=== PATIENT | male | born 1955 | race Caucasian/White ===

== ENCOUNTER 2017-11-15 10:34 | Day surgery (SDC) | payer BC ==
[2017-11-14 11:54] LABS: Absolute Lymphocytes (CBC) 2.6 K/uL (0.7-4.9); Absolute Monocytes 0.9 K/uL (0.1-1.3); Absolute Neutrophil 3.4 K/uL (1.8-8.0); Basophils % 1.5 % (0-1.3); Eosinophils % 5.9 % (0-4.4); Hematocrit 40.6 % (39.6-49.0); MCH 29.5 pg (27.0-35.0); MCV 85.5 fL (80-100); MPV 8.9 fL (7.6-11.3); RBC Red Blood Cell Count 4.75 M/uL (4.33-5.43)
[2017-11-14 11:56] LABS: Protime INR 1.06
[2017-11-15] MEDS ORDERED: NA CHLORIDE 0.9% 1,000 ML ONE (11:02)
[2017-11-15] MEDS ORDERED: BUPIVACAINE 0.5% PF 10 ML VIAL ONE (11:41)
[2017-11-15] MEDS ORDERED: MIDAZOLAM HCL 2 MG/2 ML INJ ONE (12:06)
[2017-11-15] MEDS ORDERED: FENTANYL CITR 100 MCG/2 ML ONE (12:10)
[2017-11-15] MEDS ORDERED: PROPOFOL 200 MG/20 ML VIAL IV ONE (12:10)
[2017-11-15] MEDS ORDERED: LIDOCAINE 2% MPF 5 ML VIAL ONE (12:10)
[2017-11-15] MEDS ORDERED: ONDANSETRON HCL 40 MG/20 ML VIAL ONE (12:11)
--- NOTE | 2017-11-15 12:53 | P.OP ---
Preoperative diagnosis: right hallux osteomyelitis Primary procedure: Right hallux amputation Anesthesia: general with 10cc 0.5% marcaine plain post op Estimated blood loss: <10cc Specimen: bone for pathology Findings: erythema and edema right hallux Operative Technique: Patient placed under general anesthesia and was prepped and draped in the proper manner. Right lower extremity was exsanquinated and PAT inflated to 250 mmHg. Attention directed to right hallux at which time two converging semieliptical incision were made. Incision carried straight to bone. utilizing sharp dissection the right hallux was disarticulated at the 1st mpj. The wound was irrigated with copious NSS. No purulence or abscess noted. The wound was reapproximated utilizing 3-0 Prolene for skin closure. A sterile dressing consisting of xeroform, 4X4s, kerlix and trista wrap were applied. PAT deflated with prompt hyperemic response. Complications: None Transferred to: Recovery Room Condition: Good
[2017-11-15] MEDS ORDERED: MORPHINE 4 MG/ML SYR ONE (12:58)
[2017-11-15 13:56] VITALS: BP 132/63; TEMP 97.3; O2SAT 92
== END 2017-11-15 13:58 | disposition home or self-care (01) ==
LOC: OR 10:34
PROVIDERS: ATTEND Podiatrist Foot & Ankle Surgery
PROC: 0Y6P0Z0 Detachment at Right 1st Toe, Complete, Open Approach (ICD-10-PCS; principal; 2017-11-15 12:00)
DX: E11.69 Type 2 diabetes mellitus with other specified complication (principal); M86.8X7 Other osteomyelitis, ankle and foot; G47.33 Obstructive sleep apnea (adult) (pediatric); I11.0 Hypertensive heart disease with heart failure; I50.9 Heart failure, unspecified; M19.90 Unspecified osteoarthritis, unspecified site; E66.01 Morbid (severe) obesity due to excess calories; Z68.42 Body mass index [BMI] 45.0-49.9, adult
CPT/HCPCS: 36415; 82962; 85025; 85610; 85730; 88305; 88311; J2250; J2405; J3010; J7030

== ENCOUNTER 2018-02-25 09:37 | Day surgery (SDC) | payer BC ==
[2018-02-22 12:05] LABS: Absolute Lymphocytes (CBC) 3.7 K/uL (0.7-4.9); Absolute Monocytes 1.1 K/uL (0.1-1.3); Absolute Neutrophil 7.7 K/uL (1.8-8.0); Basophils % 1.5 % (0-1.3); Eosinophils % 4.3 % (0-4.4); Hematocrit 44.6 % (39.6-49.0); Lymphocytes % 28.1 % (15.3-44.8); MPV 8.9 fL (7.6-11.3); Monocytes % 8.2 % (3.3-12.3); RBC Red Blood Cell Count 5.25 M/uL (4.33-5.43)
[2018-02-22 12:09] LABS: Urine Appearance CLEAR; Urine Bilirubin NEGATIVE (NEG); Urine Blood NEGATIVE (NEG); Urine Color YELLOW; Urine Glucose NEGATIVE (NEG); Urine Protein NEGATIVE (NEG); Urine Urobilinogen 0.2 mg/dL (0.2-1.0)
[2018-02-22 12:15] LABS: Urine Microscopic Reflex NO UMIC
[2018-02-22 12:22] LABS: Protime INR 1.21
[2018-02-25] MEDS ORDERED: NA CHLORIDE 0.9% 1,000 ML ONE (10:06)
[2018-02-25] MEDS ORDERED: LIDOCAINE 1% MPF 5 ML VIAL ONE ×3 (10:08→10:56)
[2018-02-25] MEDS ORDERED: PROPOFOL 200 MG/20 ML VIAL IV ONE (10:55)
[2018-02-25] MEDS ORDERED: FENTANYL CITR 100 MCG/2 ML ONE (10:56)
[2018-02-25] MEDS ORDERED: ONDANSETRON 4 MG/2 ML VIAL ONE (10:56)
[2018-02-25] MEDS ORDERED: MIDAZOLAM HCL 2 MG/2 ML INJ ONE (10:56)
[2018-02-25] MEDS ORDERED: LIDOCAINE 1% MPF 2 ML AMPULE ONE (10:58)
[2018-02-25] MEDS ORDERED: CEFAZOLIN 1GM (PREMIX IV) 1 GM/50 ML BAG ONE (11:23)
--- NOTE | 2018-02-25 11:37 | P.OP ---
Preoperative diagnosis: right third digit osteomyelitis Postoperative diagnosis: same Primary procedure: right third digit amputation Secondary procedure: none Anesthesia: mac with 8cc 1:1 0.5% marcaine 1% lidocaine plain Estimated blood loss: <10cc Specimen: toe for gross and micro Findings: as above Operative Technique: Patient placed under sedation in the supine position. 8cc1:1 0.5% marcaine 1% lidocaine plain injected locally right foot. Right pat inflated to 250mmHg before which area was prepped and draped in usual aseptic fashion. a racquet type incision placed at the base of the right third digit with incision being carried straight to bone. The toe was disarticulated at the mpj with utilizing sharp dissection. the wound was irrigated with copious amounts of normal sterile saline and closure was obtained with 3-0 prolene. A sterile dressing was applied to the right LE utilizing xeroform, 4X4s, kerlix and trista wrap Complications: None Transferred to: Recovery Room Condition: Good
[2018-02-25 13:13] VITALS: BP 121/44; TEMP 97.8; O2SAT 98
== END 2018-02-25 13:10 | disposition home or self-care (01) ==
LOC: OR 09:37
PROVIDERS: ATTEND Podiatrist Foot & Ankle Surgery
PROC: 0Y6T0Z0 Detachment at Right 3rd Toe, Complete, Open Approach (ICD-10-PCS; principal; 2018-02-25 11:00)
DX: E11.69 Type 2 diabetes mellitus with other specified complication (principal); M86.8X7 Other osteomyelitis, ankle and foot; I10 Essential (primary) hypertension; E66.01 Morbid (severe) obesity due to excess calories; Z68.42 Body mass index [BMI] 45.0-49.9, adult
CPT/HCPCS: 36415; 81003; 82962; 85025; 85610; 85730; 88304; 88305; 88311; J0690; J2001; J2250; J2405; J2704; J3010; J7030

== ENCOUNTER 2021-05-22 04:53 | Emergency (ER) | payer OTHER ==
[2021-05-22] MEDS ORDERED: HYDROCODONE/APAP 7.5/325 MG TAB ONE (05:49)
[2021-05-22] MEDS ORDERED: HYDROCODONE/APAP 5/325 MG TAB ONE (05:53)
--- NOTE | 2021-05-22 07:47 | RAD REPORT ---
EXAM DESCRIPTION: CT - Spine Lumbar Wo Con - 05/22/2021 6:25 am CLINICAL HISTORY: Radiculopathy. LOWER BACK PAIN COMPARISON: No comparisons TECHNIQUE: Axial noncontrast CT imaging of the lumbar spine was performed with coronal and sagittal re-formatted images. All CT scans are performed using dose optimization technique as appropriate and may include automated exposure control or mA/KV adjustment according to patient size. FINDINGS: No acute lumbar spine fracture seen. No aggressive marrow pattern or malalignment. Paraspinal tissues are normal in thickness. No paraspinal abscess or hematoma seen. Moderate posterior disc bulges are present lower lumbar levels, most significant at L4-5 and L5-S1. M ild moderate canal stenosis likely present at these levels. IMPRESSION: No acute lumbar spine abnormality. Moderate lower lumbar degenerative spondylosis. Followup nonemergent MRI lumbar spine would be sugges kecia.
[2021-05-22 08:06] LABS: Urine Blood Negative (Negative); Urine Glucose Negative (Negative); Urine Protein Negative (Negative); Urine Specific Gravity 1.015 (1.005-1.030); Urine pH 6.5 (5.0-7.0)
--- NOTE | 2021-05-22 08:29 | ER ---
Nurse's Notes [facility] Name: Andrew Alexander Age: 65 yrs Sex: Male : 1955 Arrival Date: 05/22/2021 Time: 04:53 Bed 17 Private MD: Diagnosis: Lumbago with sciatica, right side;UTI/ Urinary tract infection, site not specified Presentation: 05/22 05:09 Chief complaint: Chief complaint: Patient states: "I got a pain that goes is form my tw5 ankle to my knee to my butt. A couple of days ago it even goes up to my back. Now it is just from my butt down to my ankle.". Coronavirus screen: Vaccine status: Patient reports receiving the 2nd dose of the covid vaccine. [place]le. Ebola Screen: Patient negative for fever greater than or equal to 101.5 degrees Fahrenheit, and additional compatible Ebola Virus Disease symptoms Patient denies exposure to infectious person. Patient denies travel to an Ebola-affected area in the 21 days before illness onset. Initial Sepsis Screen: Does the patient meet any 2 criteria? No. Patient's initial sepsis screen is negative. Does the patient have a suspected source of infection? No. Patient's initial sepsis screen is negative. Risk Assessment: Do you want to hurt yourself or someone else? Patient reports no desire to harm self or others. Onset of symptoms was May 18, 2021. 05:09 Method Of Arrival: Wheelchair tw5 05:09 Acuity: LYNDSAY 3 tw5 Triage Assessment: 05:12 General: Appears in no apparent distress. obese, Behavior is calm, cooperative, tw5 appropriate for age. Pain: Pain currently is 2 out of 10 on a pain scale. at worst was 8 out of 10 on a pain scale. EENT:. Historical: - Allergies: 05:12 No Known Allergies; tw5 - PMHx: 05:12 Diabetes mellitus; Hypertensive disorder; Congestive heart failure; tw5 - Immunization history:: Flu vaccine is up to date. - Social history:: Smoking status: Patient denies any tobacco usage or history of. Screenin:13 Abuse screen: Denies threats or abuse. Denies injuries from another. Nutritional tw5 screening: No deficits noted. Tuberculosis screening: No symptoms or risk factors identified. 05:18 Fall Risk None identified. tk1 Assessment: 05:18 General: Appears uncomfortable, obese, well groomed, well developed, well nourished, tk1 Behavior is calm, cooperative, appropriate for age. Pain: Complains of pain in right buttock Pain radiates to right leg Pain currently is 10 out of 10 on a pain scale. Quality of pain is described as shooting, Pain began 2-3 days ago. Neuro: Level of Consciousness is awake, alert, obeys commands, Oriented to person, place, time, situation, Appropriate for age Marriage And Family Counselor are equal bilaterally Moves all extremities. Gait is steady. Cardiovascular: Capillary refill < 3 seconds is brisk in bilateral fingers. Respiratory: Airway is patent Respiratory effort is even, unlabored, Respiratory pattern is regular, symmetrical. GI: No deficits noted. No signs and/or symptoms were reported involving the gastrointestinal system. : No deficits noted. No signs and/or symptoms were reported regarding the genitourinary system. EENT: No deficits noted. No signs and/or symptoms were reported regarding the EENT system. Derm: No deficits noted. No signs and/or symptoms reported regarding the dermatologic system. Musculoskeletal:. 06:35 Reassessment: Patient and/or family updated on plan of care and expected duration. Pain tk1 level reassessed. Patient is alert, oriented x 3, equal unlabored respirations, skin warm/dry/pink. Pain: Pain currently is 3 out of 10 on a pain scale. 07:34 Reassessment: Patient appears in no apparent distress at this time. Patient and/or jd3 family updated on plan of care and expected duration. Pain level reassessed. Patient is alert, oriented x 3, equal unlabored respirations, skin warm/dry/pink. awaiting CT results Patient states feeling better. 08:42 Reassessment: Patient appears in no apparent distress at this time. Patient and/or jd3 family updated on plan of care and expected duration. Pain level reassessed. Patient is alert, oriented x 3, equal unlabored respirations, skin warm/dry/pink. assisted pt to front of ER via wheelchair. reported understanding of discharge instructions. Patient states feeling better. Vital Signs: 05:09 BP 135 / 62; Pulse 57; Resp 18; Temp 98.1; Pulse Ox 98% on R/A; Weight 136.08 kg; tw5 Height 5 ft. 6 in. (167.64 cm); Pain 2/10; 05:18 BP 160 / 86 LA Supine (auto/lg); Pulse 58 MON; Resp 22 S; Temp 98.1(O); Pulse Ox 96% on tk1 R/A; Pain 10/10; 06:30 BP 122 / 58 LA Supine (auto/lg); Pulse 53 MON; Resp 20 S; Pulse Ox 97% on R/A; Pain tk1 3/10; 07:39 BP 141 / 52; Pulse 56; Resp 18 S; Pulse Ox 98% on R/A; jd3 08:43 Pulse 61; Resp 18 S; Pulse Ox 99% on R/A; jd3 05:09 Body Mass Index 48.42 (136.08 kg, 167.64 cm) tw5 05:09 "When I am sitting it is fine, but when I move around it is an 8/10 pain" tw5 Wesson Coma Score: 05:18 Eye Response: spontaneous(4). Verbal Response: oriented(5). Motor Response: obeys tk1 commands(6). Total: 15. ED Course: 04:53 Patient arrived in ED. jj6 05:12 Triage completed. tw5 05:12 Arm band placed on right wrist. tw5 05:18 Linda Bucio is Primary Nurse. tk1 05:18 Patient has correct armband on for positive identification. Bed in low position. Call tk1 light in reach. Pulse ox on. NIBP on. 05:18 No provider procedures requiring assistance completed. tk1 05:22 Travis Arellano MD is Attending Physician. mh7 06:27 CT Lumbar Spine Wo Con In Process Unspecified. EDMS 08:14 Primary Nurse role handed off by Linda Bucio eb 08:24 Rubén Alonso, NAVARRO is Primary Nurse. jd3 08:25 Urine Microscopic Only Sent. jd3 08:25 Urine Culture Sent. jd3 08:43 Patient did not have IV access during this emergency room visit. jd3 Administered Medications: 05:54 Drug: HYDROcodone-acetaminophen 5 mg-325 mg 1 tabs Route: PO; tk1 06:37 Follow up: Response: Pain is decreased; RASS: Alert and Calm (0) tk1 08:26 Not Given (Physician Discretion): KeFLEX (cephalexin) 500 mg PO once jd3 08:29 Drug: Cipro (ciprofloxacin) 500 mg Route: PO; jd3 08:43 Follow up: Response: No adverse reaction; Medication administered at discharge. jd3 Outcome: 08:29 Discharge ordered by . meeta 08:43 Discharged to home via wheelchair, with family. jd3 08:43 Condition: stable 08:43 Discharge instructions given to patient, family, Instructed on discharge instructions, follow up and referral plans. medication usage, Demonstrated understanding of instructions, follow-up care, medications, Prescriptions given X 3. 08:44 Patient left the ED. jd3 Signatures: Dispatcher [employer] EDMS Rubén Alonso RN RN jd3 Rula Tran Maurice, MD MD Lissy Lyles 5 Kerline Sernaj6 Linda Bucio tk1 Corrections: (The following items were deleted from the chart) 07:38 07:34 Reassessment: Patient appears in no apparent distress at this time. Patient jd3 and/or family updated on plan of care and expected duration. Pain level reassessed. Patient is alert, oriented x 3, equal unlabored respirations, skin warm/dry/pink. awaiting CT jd3 07:38 07:34 Reassessment: Patient appears in no apparent distress at this time. Patient jd3 and/or family updated on plan of care and expected duration. Pain level reassessed. Patient is alert, oriented x 3, equal unlabored respirations, skin warm/dry/pink. awaiting CT Patient states feeling better. jd3
--- NOTE | 2021-05-22 08:29 | EDPHYS ---
Physician Documentation [facility] Name: Andrew Alexander Age: 65 yrs Sex: Male : 1955 Arrival Date: 05/22/2021 Time: 04:53 Bed 17 Private MD: ED Physician Travis Arellano HPI: 05/22 05:54 This 65 yrs old Male presents to ER via Wheelchair with complaints of Back pain. Leg mh7 pain. 05:54 The patient presents with pain that is acute, with no known mechanism of injury. The mh7 symptoms are located in the low back. Onset: The symptoms/episode began/occurred 4 day(s) ago. The pain radiates to the right leg. Associated signs and symptoms: Pertinent negatives: abdominal pain, chest pain, constipation, dysuria, fever, headache, hematuria, incontinence, nausea, numbness, tingling, urinary retention, vomiting, weakness. The problem was sustained when bending over, Doing yard work. Modifying factors: The patient symptoms are alleviated by nothing, the patient symptoms are aggravated by bending, movement, walking. Severity of symptoms: At their worst the symptoms were moderate, 4 day(s) ago, in the emergency department the symptoms have improved, moderately. Historical: - Allergies: 05:12 No Known Allergies; tw5 - PMHx: 05:12 Diabetes mellitus; Hypertensive disorder; Congestive heart failure; tw5 - Immunization history:: Flu vaccine is up to date. - Social history:: Smoking status: Patient denies any tobacco usage or history of. ROS: 05:54 Constitutional: Negative for fever, chills, and weight loss, Eyes: Negative for injury, mh7 pain, redness, and discharge, ENT: Negative for injury, pain, and discharge, Neck: Negative for injury, pain, and swelling, Cardiovascular: Negative for chest pain, palpitations, and edema, Respiratory: Negative for shortness of breath, cough, wheezing, and pleuritic chest pain, Abdomen/GI: Negative for abdominal pain, nausea, vomiting, diarrhea, and constipation, : Negative for injury, bleeding, discharge, and swelling, Skin: Negative for injury, rash, and discoloration, Neuro: Negative for headache, weakness, numbness, tingling, and seizure, Psych: Negative for depression, anxiety, suicide ideation, homicidal ideation, and hallucinations, Allergy/Immunology: Negative for hives, rash, and allergies, Endocrine: Negative for neck swelling, polydipsia, polyuria, polyphagia, and marked weight changes, Hematologic/Lymphatic: Negative for swollen nodes, abnormal bleeding, and unusual bruising. Exam: 05:54 Constitutional: This is a well developed, well nourished patient who is awake, alert, mh7 and in no acute distress. Head/Face: Normocephalic, atraumatic. Eyes: Pupils equal round and reactive to light, extra-ocular motions intact. Lids and lashes normal. Conjunctiva and sclera are non-icteric and not injected. Cornea within normal limits. Periorbital areas with no swelling, redness, or edema. Neck: Trachea midline, no thyromegaly or masses palpated, and no cervical lymphadenopathy. Supple, full range of motion without nuchal rigidity, or vertebral point tenderness. No Meningismus. Chest/axilla: Normal chest wall appearance and motion. Nontender with no deformity. No lesions are appreciated. Cardiovascular: Regular rate and rhythm with a normal S1 and S2. No gallops, murmurs, or rubs. Normal PMI, no JVD. No pulse deficits. Respiratory: Lungs have equal breath sounds bilaterally, clear to auscultation and percussion. No rales, rhonchi or wheezes noted. No increased work of breathing, no retractions or nasal flaring. Abdomen/GI: Soft, non-tender, with normal bowel sounds. No distension or tympany. No guarding or rebound. No evidence of tenderness throughout. Skin: Warm, dry with normal turgor. Normal color with no rashes, no lesions, and no evidence of cellulitis. MS/ Extremity: Pulses equal, no cyanosis. Neurovascular intact. Full, normal range of motion. Neuro: Awake and alert, GCS 15, oriented to person, place, time, and situation. Cranial nerves II-XII grossly intact. Motor strength 5/5 in all extremities. Sensory grossly intact. Cerebellar exam normal. Normal gait. Psych: Awake, alert, with orientation to person, place and time. Behavior, mood, and affect are within normal limits. 05:54 Back: normal spinal alignment noted, CVA tenderness, is absent, vertebral tenderness, is not appreciated, muscle spasm, is appreciated in the lumbar area, Straight leg raises: right lower extremity illicits pain, at 45 degrees. Vital Signs: 05:09 BP 135 / 62; Pulse 57; Resp 18; Temp 98.1; Pulse Ox 98% on R/A; Weight 136.08 kg; tw5 Height 5 ft. 6 in. (167.64 cm); Pain 2/10; 05:18 BP 160 / 86 LA Supine (auto/lg); Pulse 58 MON; Resp 22 S; Temp 98.1(O); Pulse Ox 96% on tk1 R/A; Pain 10/10; 06:30 BP 122 / 58 LA Supine (auto/lg); Pulse 53 MON; Resp 20 S; Pulse Ox 97% on R/A; Pain tk1 3/10; 07:39 BP 141 / 52; Pulse 56; Resp 18 S; Pulse Ox 98% on R/A; jd3 08:43 Pulse 61; Resp 18 S; Pulse Ox 99% on R/A; jd3 05:09 Body Mass Index 48.42 (136.08 kg, 167.64 cm) tw5 05:09 "When I am sitting it is fine, but when I move around it is an 8/10 pain" tw5 Jeffy Coma Score: 05:18 Eye Response: spontaneous(4). Verbal Response: oriented(5). Motor Response: obeys tk1 commands(6). Total: 15. MDM: 08:27 Differential diagnosis: arthritis, chronic back pain, Fatigue Fracture Ureterolithiasis mh7 vertebral fracture. Data reviewed: vital signs, nurses notes, lab test result(s), urinalysis, radiologic studies, CT scan. Data interpreted: Pulse oximetry: on room air is 98 %. Interpretation: normal. Counseling: I had a detailed discussion with the patient and/or guardian regarding: the historical points, exam findings, and any diagnostic results supporting the discharge/admit diagnosis, the presence of at least one elevated blood pressure reading (>120/80) during this emergency department visit, lab results, radiology results, the need for outpatient follow up, to return to the emergency department if symptoms worsen or persist or if there are any questions or concerns that arise at home. Response to treatment: the patient's symptoms have markedly improved after treatment. 08:29 Patient medically screened. 7 05/22 08:06 Order name: Urine Dipstick-Ancillary; Complete Time: 08:14 EDMS 05/22 08:15 Order name: Urine Microscopic Only [facility] 05/22 05:48 Order name: CT Lumbar Spine Wo Con; Complete Time: 07:48 [facility] 05/22 08:15 Order name: Urine Culture [facility] 05/22 05:48 Order name: Urine Dipstick-Ancillary (obtain specimen); Complete Time: 08:14 [facility] Administered Medications: 05:54 Drug: HYDROcodone-acetaminophen 5 mg-325 mg 1 tabs Route: PO; tk1 06:37 Follow up: Response: Pain is decreased; RASS: Alert and Calm (0) tk1 08:26 Not Given (Physician Discretion): KeFLEX (cephalexin) 500 mg PO once jd3 08:29 Drug: Cipro (ciprofloxacin) 500 mg Route: PO; jd3 08:43 Follow up: Response: No adverse reaction; Medication administered at discharge. jd3 Disposition Summary: 05/22/21 08:29 Discharge Ordered Location: Home [facility] Problem: new [facility] Symptoms: have improved [facility] Condition: Stable [facility] Diagnosis - Lumbago with sciatica, right side [facility] - UTI/ Urinary tract infection, site not specified [facility] Followup: [facility] - With: Private Physician - When: 1 - 2 days - Reason: Worsening of condition, Recheck today's complaints, Continuance of care, Re-evaluation by your physician Discharge Instructions: - Discharge Summary Sheet [facility] - Urinary Tract Infection, Adult, [id number] [facility] - Sciatica, [id number] [facility] Forms: - Medication Reconciliation Form [facility] - Thank You Letter [facility] - Antibiotic Education [facility] - Prescription Opioid Use [facility] Prescriptions: - Cipro 500 mg Oral Tablet - take 1 tablet by ORAL route every 12 hours for 7 days; 14 tablet; Refills: 0, [facility] Product Selection Permitted - Cyclobenzaprine 10 mg Oral Tablet - take 1 tablet by ORAL route every 8 hours As needed; 15 tablet; Refills: 0, [facility] Product Selection Permitted - Tylenol-Codeine #3 300 mg-30 mg Oral - take 2 tablet by ORAL route every 6 hours As needed; 15 tablet; Refills: 0, [facility] Product Selection Permitted Signatures: Dispatcher [employer] Rubén Menjivar RN RN jd3 Travis Arellano MD MD 7 Lissy Guaman tw5 Linda Bucio tk1
[2021-05-22] MEDS ORDERED: CIPROFLOXACIN HCL 500 MG TAB ONE (08:31)
[2021-05-22 08:38] LABS: Urine Bacteria <20 /HPF (NONE SEEN); Urine RBC <5 /HPF (NONE SEEN)
[2021-05-22 08:39] LABS: Urine Sperm PRESENT (NONE SEEN)
== END 2021-05-22 08:44 | disposition home or self-care (01) ==
LOC: ER 04:53
DX: N39.0 Urinary tract infection, site not specified (principal); M54.41 Lumbago with sciatica, right side
CPT/HCPCS: 72131; 81003; 81015; 87086; 87088; 99284

== ENCOUNTER 2022-11-17 11:15 | Inpatient (IN) | payer OTHER ==
[2022-11-17] MEDS ORDERED: AZITHROMYCIN 250 MG TAB ONE (11:43)
[2022-11-17] MEDS ORDERED: CEFTRIAXONE 1000 MG/VIAL ONE (11:43)
[2022-11-17] MEDS ORDERED: NA CHLORIDE 0.9% 100 ML ONE (11:43)
[2022-11-17] MEDS ORDERED: NA CHLORIDE 0.9% 1,000 ML ONE ×2 (11:43→16:28)
[2022-11-17 11:46] LABS: Absolute Lymphocytes (CBC) 2.3 K/uL (0.7-4.9); Hematocrit 40.8 % (39.6-49.0); Lymphocytes % 9.9 % (15.3-44.8); MCV 83.5 fL (80-100); MPV 8.1 fL (7.6-11.3); Platelets 333 thou/uL (152-406); RBC Red Blood Cell Count 4.88 M/uL (4.33-5.43)
[2022-11-17 11:50] LABS: Protime INR 1.41
[2022-11-17 12:20] LABS: Bilirubin Direct 0.5 mg/dL (0-0.2); Bilirubin Indirect, Calculated 0.5 mg/dL (0.2-0.8); Potassium 3.6 mEq/L (3.5-5.1); Protein, Total 8.2 g/dL (6.4-8.2); Troponin High Sensitivity 9.3 pg/mL (<58.9)
--- NOTE | 2022-11-17 12:29 | RAD REPORT ---
EXAM DESCRIPTION: RAD - Chest Single View - 11/17/2022 12:22 pm CLINICAL HISTORY: COUGH COMPARISON: CHEST SINGLE VIEW dated 06/30/2013; CHEST SINGLE VIEW dated 12/05/2011; CHEST SINGLE VIEW dated 09/26/2010; CHEST SINGLE VIEW dated 04/07/2010 FINDINGS: Lines: None. Lungs: No evidence of edema or pneumonia. Minimal linear scarring or subsegmental atelectasis in the right mid lung. Pleural: No significant pleural effusions or pneumothorax. Cardiac: The heart size is within normal limits. Mediastinum: Within normal limits. Bones: No acute fractures. Other: None IMPRESSION: No acute cardiopulmonary disease.
[2022-11-17 12:44] LABS: Blood Morphology Comment NOT SEEN (NOT SEEN); Platelet Estimate ADEQ
[2022-11-17] MEDS ORDERED: ACETAMINOPHEN 500 MG TAB ONE (12:54)
--- NOTE | 2022-11-17 15:20 | ER ---
Nurse's Notes [facility] [place] Name: Andrew Alexander Age: 67 yrs Sex: Male : 1955 Arrival Date: 11/17/2022 Time: 11:15 Bed 19 Private MD: Diagnosis: Fever, unspecified;Dyspnea;Hypoxemia;Elevated white blood cell count;Obesity, unspecified;Pneumonia due to other specified bacteria-BILATERAL MULTIFOCAL PNA Presentation: 11/17 11:22 Chief complaint: Patient states: Congestion, cough and fever since Sunday. Not better. nj1 11:22 Coronavirus screen: Vaccine status: Patient reports receiving the 2nd dose of the covid nj1 vaccine. Ebola Screen: Patient reports travel to Ebola-affected area in the 21 days before illness onset. Patient reports having traveled to: [place], [place]. Initial Sepsis Screen: Does the patient meet any 2 criteria? No. Patient's initial sepsis screen is negative. Does the patient have a suspected source of infection? No. Patient's initial sepsis screen is negative. Risk Assessment: Do you want to hurt yourself or someone else? Patient reports no desire to harm self or others. Onset of symptoms was November 12, 2022. 11:22 Method Of Arrival: Ambulatory nj1 11:22 Acuity: LYNDSAY 3 nj1 Triage Assessment: 12:00 General: Behavior is calm, cooperative. tf2 12:30 Respiratory: Breath sounds are coarse bilaterally. tf2 17:00 General: Behavior is. tf2 Historical: - Allergies: 11:42 Sulfa (Sulfonamide Antibiotics); nj1 - PMHx: 11:42 Congestive heart failure; diabetes mellitus; Hypertensive disorder; nj1 - Immunization history:: Client reports receiving the 2nd dose of the Covid vaccine. - Social history:: Smoking status: Patient denies any tobacco usage or history of. Screenin:00 [facility] ED Fall Risk Assessment (Adult) History of falling in the last 3 months, tf2 including since admission No falls in past 3 months (0 pts) Confusion or Disorientation No (0 pts) Intoxicated or Sedated No (0 pts) Impaired Gait Yes (1 pt) Mobility Assist Device Used No (0 pt) Altered Elimination No (0 pt) Score/Fall Risk Level 0 - 2 = Low Risk Oriented to surroundings, Maintained a safe environment, Educated pt \T\ family on fall prevention, incl call for assistance when getting out of bed, Assessed \T\ reinforced patient's understanding of fall precautions, Provided non-skid footwear, Hourly rounding (assess needs \T\ fall precautionary measures) done. Abuse screen: Denies threats or abuse. Denies injuries from another. Nutritional screening: No deficits noted. Tuberculosis screening: No symptoms or risk factors identified. Assessment: 12:00 General: Appears uncomfortable, ill, unkempt. Pain: Denies pain. Neuro: Denies tf2 dizziness, headache photophobia. Cardiovascular: Reports shortness of breath, Denies chest pain. Respiratory: Reports shortness of breath Respiratory effort is labored. Respiratory: Reports cough that is productive. GI: No deficits noted. No signs and/or symptoms were reported involving the gastrointestinal system. : No deficits noted. No signs and/or symptoms were reported regarding the genitourinary system. EENT: Eyes with exudate noted from right outer canthus, outer aspect of conjuctiva of right eye, right inner canthus, left outer canthus, outer aspect of conjuctiva of left eye and left inner canthus. Derm: No deficits noted. Musculoskeletal: No signs and/or symptoms reported regarding the musculoskeletal system. Vital Signs: 11:22 BP 152 / 73; Pulse 83; Resp 18; Temp 100.3; Pulse Ox 96% on R/A; Weight 127.01 kg; nj1 Height 5 ft. 6 in. ; 13:00 BP 110 / 75; Pulse 78; Resp 20; Pulse Ox 93% on R/A; tf2 14:00 BP 110 / 70; Pulse 70; Resp 21; Pulse Ox 94% 4 lpm ; tf2 15:00 BP 119 / 77; Pulse 68; Resp 20; Pulse Ox 94% 4 lpm ; tf2 17:00 BP 108 / 60; Pulse 72; Resp 22; Pulse Ox 95% 4 lpm ; tf2 18:00 BP 112 / 70; Pulse 71; Resp 23; Pulse Ox 95% 4 lpm ; tf2 20:18 BP 123 / 97; Pulse 71; Resp 22; Temp 99; Pulse Ox 97% on 2 lpm NC; rv 11:22 Body Mass Index 45.19 (127.01 kg, 167.64 cm) [facility] Vitals: 18:00 Cardiac Rhythm Assessment Regular Sinus rhythm. tf2 [place]y Coma Score: 12:00 Eye Response: spontaneous(4). Motor Response: obeys commands(6). Verbal Response: tf2 oriented(5). Total: 15. ED Course: 11:18 Patient arrived in ED. im 11:20 Ronak Ni MD is Attending Physician. suzanne 11:22 Emma Diop RN is Primary Nurse. tf2 11:22 Emma Diop RN is Primary Nurse. tf2 11:33 EKG done, by ED staff. aw1 11:42 Triage completed. nj1 11:43 Arm band placed on. nj1 12:00 No apparent distress. Resting quietly. tf2 12:00 Inserted saline lock: 18 gauge in right forearm, using aseptic technique. Blood tf2 collected. 12:00 Patient has correct armband on for positive identification. Placed in gown. Bed in low tf2 position. Call light in reach. Side rails up X 1. Provided Education on: plan of care. Report given to NAVARRO Lion. 12:24 XRAY Chest (1 view) In Process Unspecified. EDMS 15:06 CT Chest Abdomen Pelvis W/O Contrast In Process Unspecified. EDMS 15:18 Baldo Nelson MD is Hospitalizing Provider. suzanne 20:19 No provider procedures requiring assistance completed. Patient admitted, IV remains in rv place. Administered Medications: 11:40 Drug: NS 0.9% IV 1000 ml IV at 1 bolus Per protocol; 1000 mL bolus Route: IV; Rate: 1 tf2 bolus; Site: right forearm; 19:26 Follow up: IV Status: Completed infusion tf2 11:40 Drug: Rocephin IV 1 grams IV at per protocol once; Given slow IV push per pharmacy tf2 instructions Route: IV; Rate: per protocol; Site: right forearm; 20:19 Follow up: Response: No adverse reaction; IV Status: Completed infusion rv 11:45 Drug: AZITHromycin PO 500 mg PO once Route: PO; tf2 19:26 Follow up: Response: No adverse reaction tf2 12:37 Drug: NS 0.9% IV 1000 ml IV at 1 bolus Per protocol; 1000 mL bolus Route: IV; Rate: 1 tf2 bolus; Site: right forearm; 19:26 Follow up: IV Status: Completed infusion tf2 13:00 Drug: Acetaminophen PO 1000 mg PO once Route: PO; tf2 19:25 Follow up: Response: Temperature is decreased tf2 16:30 Drug: Famotidine IVP 20 mg IVP once; dilute with 10 mL 0.9% NaCl; give over 2 minutes tf2 Route: IVP; Site: right forearm; 19:24 Follow up: Response: No adverse reaction tf2 16:51 Drug: levofloxacin IVPB 500 mg 100 ml IVPB once over 60 mins Volume: 100 ml; Route: tf2 IVPB; Infused Over: 60 mins; Site: right forearm; 19:25 Follow up: Response: No adverse reaction; IV Status: Completed infusion tf2 16:51 Drug: Lovenox Sub-Q 40 mg Sub-Q once Route: Sub-Q; Site: left upper abdomen; tf2 19:25 Follow up: Response: No adverse reaction tf2 16:51 Drug: NS 0.9% IV 1000 ml IV at 125 ml/hr continuous Route: IV; Rate: 125 ml/hr; Site: tf2 right forearm; 19:24 Follow up: IV Status: Infusion continued tf2 Medication: 12:00 VIS not applicable for this client. tf2 Outcome: 15:20 Decision to Hospitalize by Provider. suzanne 20:19 Admitted to Med/surg accompanied by nurse, via wheelchair, room 217, with oxygen, with rv chart, Report called to SORAYA BRICEÑO 20:19 Condition: good 20:19 Instructed on the need for admit, 20:20 Patient left the ED. rv Signatures: Dispatcher [employer] Ronak Coles MD MD cha Vicente, Ronaldo RN RN rv Jasmyne Jon RN RN jose1 Beatris Butler Alyssa 1 Emma Diop RN RN tf2 Corrections: (The following items were deleted from the chart) 12:26 11:40 NS 0.9% IV 1000 ml IV at 1 bolus in right forearm tf2 tf2
--- NOTE | 2022-11-17 15:20 | EDPHYS ---
Physician Documentation [facility] Name: Andrew Alexander Age: 67 yrs Sex: Male : 1955 Arrival Date: 11/17/2022 Time: 11:15 Bed 19 Private MD: ED Physician Ronak Ni HPI: 11/17 15:12 This 67 yrs old Male presents to ER via Ambulatory with complaints of suzanne Congestion, Cough, Fever. 15:12 The patient or guardian reports cough, difficulty breathing, flu symptoms, arthralgias, suzanne low-grade fever, myalgias. Onset: The symptoms/episode began/occurred 5 day(s) ago. Severity of symptoms: At their worst the symptoms were mild, moderate, in the emergency department the symptoms are unchanged. Modifying factors: The symptoms are alleviated by nothing, the symptoms are aggravated by nothing. Associated signs and symptoms: Pertinent positives: rhinorrhea, sore throat. The patient has not experienced similar symptoms in the past. Historical: - Allergies: 11:42 Sulfa (Sulfonamide Antibiotics); nj1 - PMHx: 11:42 Congestive heart failure; diabetes mellitus; Hypertensive disorder; nj1 - Immunization history:: Client reports receiving the 2nd dose of the Covid vaccine. - Social history:: Smoking status: Patient denies any tobacco usage or history of. ROS: 15:15 Constitutional: Negative for fever, chills, and weight loss, Eyes: Negative for injury, suzanne pain, redness, and discharge, ENT: Negative for injury, pain, and discharge, Neck: Negative for injury, pain, and swelling, Cardiovascular: Negative for chest pain, palpitations, and edema, Abdomen/GI: Negative for abdominal pain, nausea, vomiting, diarrhea, and constipation, Back: Negative for injury and pain, : Negative for injury, bleeding, discharge, and swelling, MS/Extremity: Negative for injury and deformity, Skin: Negative for injury, rash, and discoloration, Neuro: Negative for headache, weakness, numbness, tingling, and seizure, 15:15 Respiratory: Positive for cough, shortness of breath, at rest. Exam: 15:15 Constitutional: This is a well developed, well nourished patient who is awake, alert, suzanne and in no acute distress. Head/Face: Normocephalic, atraumatic. Eyes: Pupils equal round and reactive to light, extra-ocular motions intact. Lids and lashes normal. Conjunctiva and sclera are non-icteric and not injected. Cornea within normal limits. Periorbital areas with no swelling, redness, or edema. ENT: Nares patent. No nasal discharge, no septal abnormalities noted. Tympanic membranes are normal and external auditory canals are clear. Oropharynx with no redness, swelling, or masses, exudates, or evidence of obstruction, uvula midline. Mucous membranes moist. Neck: Trachea midline, no thyromegaly or masses palpated, and no cervical lymphadenopathy. Supple, full range of motion without nuchal rigidity, or vertebral point tenderness. No Meningismus. Chest/axilla: Normal chest wall appearance and motion. Nontender with no deformity. No lesions are appreciated. Cardiovascular: Regular rate and rhythm with a normal S1 and S2. No gallops, murmurs, or rubs. Normal PMI, no JVD. No pulse deficits. Abdomen/GI: Soft, non-tender, with normal bowel sounds. No distension or tympany. No guarding or rebound. No evidence of tenderness throughout. Back: No spinal tenderness. No costovertebral tenderness. Full range of motion. Male : Normal genitalia with no discharge or lesions. Skin: Warm, dry with normal turgor. Normal color with no rashes, no lesions, and no evidence of cellulitis. MS/ Extremity: Pulses equal, no cyanosis. Neurovascular intact. Full, normal range of motion. Neuro: Awake and alert, GCS 15, oriented to person, place, time, and situation. Cranial nerves II-XII grossly intact. Motor strength 5/5 in all extremities. Sensory grossly intact. Cerebellar exam normal. Normal gait. Psych: Awake, alert, with orientation to person, place and time. Behavior, mood, and affect are within normal limits. 15:15 ECG was reviewed by the Attending Physician. 15:15 Respiratory: the patient does not display signs of respiratory distress, Respirations: normal, Breath sounds: rhonchi, that are mild, are scattered, Respiratory rate: 18 Vital Signs: 11:22 BP 152 / 73; Pulse 83; Resp 18; Temp 100.3; Pulse Ox 96% on R/A; Weight 127.01 kg; nj1 Height 5 ft. 6 in. ; 13:00 BP 110 / 75; Pulse 78; Resp 20; Pulse Ox 93% on R/A; tf2 14:00 BP 110 / 70; Pulse 70; Resp 21; Pulse Ox 94% 4 lpm ; tf2 15:00 BP 119 / 77; Pulse 68; Resp 20; Pulse Ox 94% 4 lpm ; tf2 17:00 BP 108 / 60; Pulse 72; Resp 22; Pulse Ox 95% 4 lpm ; tf2 18:00 BP 112 / 70; Pulse 71; Resp 23; Pulse Ox 95% 4 lpm ; tf2 20:18 BP 123 / 97; Pulse 71; Resp 22; Temp 99; Pulse Ox 97% on 2 lpm NC; rv 11:22 Body Mass Index 45.19 (127.01 kg, 167.64 cm) nj1 [place] Coma Score: 12:00 Eye Response: spontaneous(4). Motor Response: obeys commands(6). Verbal Response: tf2 oriented(5). Total: 15. MDM: 11:20 Patient medically screened. [facility] 15:17 Differential diagnosis: viral Infection, bacterial infection, URI, bronchitis, suzanne pneumonia UTI. Differential Diagnosis: Obstructed Airway Bronchitis Influenza Upper Respiratory Infection Sinusitis Pharyngitis Asthma Exacerbation Viral Syndrome. Data reviewed: vital signs, nurses notes, lab test result(s), EKG, radiologic studies, CT scan, plain films. Consideration of Admission/Observation Patient was admitted/placed on observation. Escalation of care including admission/observation considered. I considered the following discharge prescriptions or medication management in the emergency department Medications were administered in the Emergency Department. See MAR. Test considered but Not performed: Ultrasound no abd usg. Care significantly affected by the following chronic conditions: Diabetes, Hypertension, Congestive Heart Failure. 11/17 11:22 Order name: Basic Metabolic Panel; Complete Time: 14:47 [facility] 11/17 11:22 Order name: CBC with Diff; Complete Time: 14:47 [facility] 11/17 11:22 Order name: LFT's; Complete Time: 14:47 [facility] 11/17 11:22 Order name: Magnesium; Complete Time: 14:47 [facility] 11/17 11:22 Order name: NT PRO-BNP; Complete Time: 14:47 [facility] 11/17 11:22 Order name: PT-INR; Complete Time: 12:08 [facility] 11/17 11:22 Order name: Troponin HS; Complete Time: 14:47 [facility] 11/17 11:22 Order name: Blood Culture Adult (2) [facility] 11/17 11:22 Order name: Lactate w/ 2H reflex if indic.; Complete Time: 12:08 [facility] 11/17 11:22 Order name: Flu; Complete Time: 14:47 [facility] 11/17 11:22 Order name: COVID-19 SARS RT PCR; Complete Time: 14:47 [facility] 11/17 11:50 Order name: Manual Differential; Complete Time: 14:47 [facility] 11/17 16:00 Order name: Lactate Sepsis 2 HR Follow-up; Complete Time: 16:19 [facility] 11/17 18:32 Order name: Basic Metabolic Panel [facility] 11/17 18:32 Order name: Basic Metabolic Panel [facility] 11/17 18:32 Order name: Basic Metabolic Panel [facility] 11/17 18:32 Order name: Basic Metabolic Panel [facility] 11/17 18:32 Order name: CBC with Automated Diff [facility] 11/17 18:32 Order name: CBC with Automated Diff [facility] 11/17 18:32 Order name: CBC with Automated Diff [facility] 11/17 18:32 Order name: CBC with Automated Diff [facility] 11/17 18:32 Order name: Magnesium EDMS 11/17 18:32 Order name: Magnesium EDMS 11/17 18:32 Order name: Magnesium EDMS 11/17 18:32 Order name: Magnesium EDMS 11/17 18:32 Order name: Phosphorus ED[facility] 11/17 18:32 Order name: Phosphorus EDMS 11/17 18:32 Order name: Phosphorus EDMS 11/17 18:32 Order name: Phosphorus [facility] 11/17 11:22 Order name: XRAY Chest (1 view); Complete Time: 14:47 [facility] 11/17 14:49 Order name: CT Chest Abdomen Pelvis W/O Contrast; Complete Time: 16:19 [facility] 11/17 11:22 Order name: EKG; Complete Time: 11:23 [facility] 11/17 18:32 Order name: 60g Consistent Carbohydrate (ADA 1800/1999) [facility] 11/17 11:22 Order name: Cardiac monitoring; Complete Time: 11:52 [facility] 11/17 11:22 Order name: EKG - Nurse/Tech; Complete Time: 11:36 [facility] 11/17 11:22 Order name: IV Saline Lock; Complete Time: 11:53 [facility] 11/17 11:22 Order name: Labs collected and sent; Complete Time: 11:53 [facility] 11/17 11:22 Order name: O2 Per Protocol; Complete Time: 16:51 [facility] 11/17 11:22 Order name: O2 Sat Monitoring; Complete Time: 14:20 [facility] 11/17 15:44 Order name: IV Saline Lock - Large Bore; Complete Time: 16:51 [facility] EC:15 Rate is 85 beats/min. Rhythm is regular. QRS [place] is Normal. CA interval is normal. QRS suzanne interval is normal at 525 msec. No Q waves. T waves are Normal. No ST changes noted. Clinical impression: NSR w/ Non-specific ST/T Changes and No evidence of ischemia. Interpreted by me. Reviewed by me. Administered Medications: 11:40 Drug: NS 0.9% IV 1000 ml IV at 1 bolus Per protocol; 1000 mL bolus Route: IV; Rate: 1 tf2 bolus; Site: right forearm; 19:26 Follow up: IV Status: Completed infusion tf2 11:40 Drug: Rocephin IV 1 grams IV at per protocol once; Given slow IV push per pharmacy tf2 instructions Route: IV; Rate: per protocol; Site: right forearm; 20:19 Follow up: Response: No adverse reaction; IV Status: Completed infusion rv 11:45 Drug: AZITHromycin PO 500 mg PO once Route: PO; tf2 19:26 Follow up: Response: No adverse reaction tf2 12:37 Drug: NS 0.9% IV 1000 ml IV at 1 bolus Per protocol; 1000 mL bolus Route: IV; Rate: 1 tf2 bolus; Site: right forearm; 19:26 Follow up: IV Status: Completed infusion tf2 13:00 Drug: Acetaminophen PO 1000 mg PO once Route: PO; tf2 19:25 Follow up: Response: Temperature is decreased tf2 16:30 Drug: Famotidine IVP 20 mg IVP once; dilute with 10 mL 0.9% NaCl; give over 2 minutes tf2 Route: IVP; Site: right forearm; 19:24 Follow up: Response: No adverse reaction tf2 16:51 Drug: levofloxacin IVPB 500 mg 100 ml IVPB once over 60 mins Volume: 100 ml; Route: tf2 IVPB; Infused Over: 60 mins; Site: right forearm; 19:25 Follow up: Response: No adverse reaction; IV Status: Completed infusion tf2 16:51 Drug: Lovenox Sub-Q 40 mg Sub-Q once Route: Sub-Q; Site: left upper abdomen; tf2 19:25 Follow up: Response: No adverse reaction tf2 16:51 Drug: NS 0.9% IV 1000 ml IV at 125 ml/hr continuous Route: IV; Rate: 125 ml/hr; Site: tf2 right forearm; 19:24 Follow up: IV Status: Infusion continued tf2 Disposition Summary: 11/17/22 15:20 Hospitalization Ordered Notes: Hospitalization Status: Inpatient Admission suzanne Provider: Baldo Nelson cha Condition: Fair suzanne Problem: new suzanne Symptoms: have improved suzanne Bed/Room Type: Standard suzanne Location: Telemetry/MedSurg (Inpatient)(11/17/22 18:26) jl7 Room Assignment: [facility](11/17/22 19:39) Diagnosis - Fever, unspecified suzanne - Dyspnea suzanne - Hypoxemia suzanne - Elevated white blood cell count suzanne - Obesity, unspecified suzanne - Pneumonia due to other specified bacteria - BILATERAL MULTIFOCAL PNA suzanne Forms: - Medication Reconciliation Form suzanne - SBAR form suzanne - Leadership Thank You Letter suzanne Signatures: Dispatcher [employer] EDRonak Duckworth MD MD cha Garcia, Cindy, RN RN cg Olga Ariza RN RN hb Barbara Madison RN RN jl7 Jasmyne Jon RN RN nj1 Emma Diop RN RN tf2 Neal Heller RN rv Corrections: (The following items were deleted from the chart) 18:16 15:20 Telemetry/MedSurg (Inpatient) suzanne hb 18:16 15:20 suzanne hb 18:26 18:16 [facility] ER HOLD hb jl7 18:26 18:16 ERHOLD- hb jl7 19:39 18:26 jl7 cg
--- NOTE | 2022-11-17 16:12 | RAD REPORT ---
EXAM DESCRIPTION: CT - Chest Abd Pelvis Wo Con - 11/17/2022 3:09 pm CLINICAL HISTORY: Cough;Fever COMPARISON: CTANGIO CHEST FOR PE dated 09/05/2009; Chest Single View dated 11/17/2022 TECHNIQUE: Thin axial CT images of the chest, abdomen, and pelvis, performed without IV contrast. Mu ltiplanar reformats were generated and reviewed. All CT scans are performed using dose optimization technique as appropriate and may include automated exposure control or mA/KV adjustment according to patient size. FINDINGS: Consolidative opacities in the bibasilar lower lobes which areas of air bronchogram, as we ll as a small confluent opacity in the peripheral left upper lobe.No pleural or pericardial effusion. No intrathoracic adenopathy. The liver, spleen, pancreas, and adrenal glands are within normal limits. Anterior pancreatic focus of calcification and other tiny punctate foci, may represent sequelae of granulomatous infection. 5 m illimeter calculus at the right lower pole. No bowel obstruction, free air, free fluid or abscess. Fluid opacification within the proximal colon, nonspecific. Normal appendix. Small umbilical hernia containing fat No pathologic lymphadenopathy in the abdomen or pelvis. Prostatomegaly. No worrisome osseous finding. IMPRESSION: Bilateral airspace opacities in the lower lobes as well as the left upper lobe, suggesti ve of multifocal pneumonia. Fluid opacification within the proximal colon. This is nonspecific, and could relate to diarrheal sta te. Nonobstructing right lower pole 5 millimeter calculus.
[2022-11-17] MEDS ORDERED: Levofloxacin500mg IV 500 MG/100 ML BAG IV ONE (16:27)
[2022-11-17] MEDS ORDERED: FAMOTIDINE 20 MG/2 ML VIAL IV ONE (16:28)
[2022-11-17] MEDS ORDERED: ENOXAPARIN 40 MG/0.4 ML SQ ONE (16:28)
[2022-11-17] MEDS ORDERED: MAGNESIUM HYDROXIDE 8% 30 ML PO PRN (18:18)
--- NOTE | 2022-11-17 18:33 | P.HP ---
Certification for Inpatient With expected LOS: >2 Midnights Patient will require the following post-hospital care: None Practitioner: I am a practitioner with admitting privileges, knowledge of patient current condition, hospital course, and medical plan of care. Services: Services provided to patient in accordance with Admission requirements found in Title 42 Section 412.3 of the Code of Federal Regulations Patient History Date of Service: 11/17/22 Reason for admission: cough History of Present Illness: Andrew Alexander is a 67-year-old male with past medical history congestive heart failure, diabetes mellitus, hypertension, and chronic pain, presents to the ED complaining of cough, difficulty breathing, flu like symptoms, arthralgia, low- grade fever, and dizziness. Onset of symptoms was Sunday, 5 days ago, patient reports his brought him to the ED since he was not finding relief with cold medicine. While in the ED EKG reveals regular rhythm with heart rate of 85 but with QTc of 525 and QT of 442. CT Reveals bilateral airspace opacity in the lower lobes as well as left upper lobe suggestive of multifocal pneumonia, and nonobstructing right lower pole 5 mm calculus. White blood cells 22.7, lactic 2.3 and redraw of 2.4, BUN/creatinine 22/1.45 with GFR 53. Blood pressure initially 152/73, heart rate 83, RR 18, temp 100.3, pulse ox 96% on room air. Levaquin, Rocephin, and azithromycin were given while in the ED with 2 L of IV fluids. Patient will be admitted for multifocal pneumonia and treated with IV antibiotics. Patient does not meeet sepsis criteria. Due to prolonged QT will not be starting azithromycin Allergies No Known Allergies Allergy (Verified 02/22/18 11:17) Home Medications: Atenolol [Tenormin] 50 mg PO BID 12/06/11 Fenofibrate Nanocrystallized [Tricor] 145 mg PO DAILY 12/06/11 Furosemide [Lasix] 80 mg PO DAILY 12/06/11 Fortescue-3 Acid Ethyl Esters [Lovaza] 4 cap PO BEDTIME 12/06/11 Spironolactone 50 mg PO DAILY 12/06/11 Lovastatin [Mevacor] 40 mg PO DAILY AT SUPPER 06/28/13 Aspirin [Aspirin EC 81 MG] 81 mg PO DAILY 11/05/17 Insulin Aspart [Novolog Flexpen] 1 unit SQ SEECOM 11/05/17 Insulin Glargine Human [Lantus] 60 unit SQ BID 11/05/17 - Past Medical/Surgical History Diabetic: Yes -: DM -: CHF -: Asthma -: HTN -: blindness R eye -: 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 -: 2nd toe on L foot amputated - Social History Alcohol use: Yes CD- Drugs: No Caffeine use: Yes Place of Residence: Home Review of Systems General: Fever, Chills Eyes: Unremarkable ENT: Unremarkable Respiratory: Cough Cardiovascular: Light Headedness Gastrointestinal: Unremarkable Genitourinary: Unremarkable Musculoskeletal: Back Pain, Other (bilateral knee pain) Integumentary: Unremarkable Physical Examination - Physical Exam General: Alert, In no apparent distress, Oriented x3 HEENT: Atraumatic, Normocephalic, PERRLA Neck: Supple, 2+ carotid pulse no bruit Respiratory: Diminished (to lower lobes) Cardiovascular: Normal pulses, Regular rate/rhythm, Normal S1 S2 Capillary refill: <2 Seconds Gastrointestinal: Normal bowel sounds Musculoskeletal: No clubbing, No contractures Integumentary: No rashes Neurological: Normal speech, Normal strength at 5/5 x4 extr, Normal tone - Studies Laboratory Data (last 24 hrs) 11/17/22 11/17/22 11/17/22 11:30 11:30 11:30 WBC 22.70 H Hgb 14.0 Hct 40.8 Plt Count 333 PT 15.5 H INR 1.41 Sodium 133 L Potassium 3.6 BUN 22 H Creatinine 1.45 H Glucose 165 H Magnesium 2.0 Total Bilirubin 1.0 AST 17 ALT 22 Alkaline Phosphatase 63 Microbiology Data (last 24 hrs): 11/17/22 11:47 Nasopharnyx Influenza Type A Antigen Screen - Final 11/17/22 11:47 Nasopharnyx Influenza Type B Antigen Screen - Final Assessment and Plan - Plan Assessment and Plan Acute hypoxic respiratory distress 2/2 Multifocal pneumonia leukocytosis -WBC 22.7, lactic 2.3/2.4 -doxycyclin and ceftriaxone - trend lactic and WBC in AM labs -Patient does not meeet sepsis criteria, not starting azithromycin Diabetes mellitus type 2 -accucheck and SSI -hypoglycemia protocol H/o hypertension -hold antihypertensives until appropriate h/o HLD -continue home medications Chronic pain to bilateral knees and back -restart home medications DVT ppx: heparin full code LOS > 2 days Discharge Plan: Home Plan to discharge in: Greater than 2 days - Advance Directives Does patient have a Living Will: No Does patient have a Durable POA for Healthcare: No - Code Status/Comfort Care Code Status Assessed: Yes Code Status: Full Code Time Spent Managing Pts Care (In Minutes): 55
[2022-11-17] MEDS: INSULIN -REGULAR HUMAN 50 UNIT/0.5 ML ML SQ SCH (21:00)
[2022-11-17] MEDS: DOXYCYCLINE 100 MG in NA CHLORIDE 0.9% 100 ML IVPB SCH (21:35)
[2022-11-17] MEDS: NA CHLORIDE 0.9% 1,000 ML IV SCH (21:35)
[2022-11-17 22:52] VITALS: BMI 43.1
[2022-11-18] MEDS: HEPARIN 5000 UNIT/ML 1 ML VIAL SQ SCH ×3 (00:18→17:12)
[2022-11-18 04:23] LABS: Absolute Lymphocytes (CBC) 2.2 K/uL (0.7-4.9); Hematocrit 36.8 % (39.6-49.0); Lymphocytes % 11.6 % (15.3-44.8); MCV 83.7 fL (80-100); MPV 7.8 fL (7.6-11.3); Platelets 297 thou/uL (152-406)
[2022-11-18 04:51] LABS: Phosphorus 2.3 mg/dL (2.5-4.9); Potassium 3.8 mEq/L (3.5-5.1)
[2022-11-18] MEDS: INSULIN -REGULAR HUMAN 50 UNIT/0.5 ML ML SQ SCH ×4 (07:30→20:26)
[2022-11-18] MEDS: DOXYCYCLINE 100 MG in NA CHLORIDE 0.9% 100 ML IVPB SCH ×2 (07:59→20:26)
[2022-11-18] MEDS: CEFTRIAXONE 1,000 MG in NA CHLORIDE 0.9% 50 ML IVPB SCH (07:59)
[2022-11-18] MEDS: NA CHLORIDE 0.9% 1,000 ML IV SCH (08:20)
[2022-11-18] MEDS ORDERED: POTASS/SODIUM PHOSPHATE 1 PKT POWD.PACK PO ONE (08:20)
[2022-11-18] MEDS ORDERED: POTASSIUM CL SA 10 MEQ TAB PO ONE (08:20)
[2022-11-18] MEDS ORDERED: DOXYCYCLINE 100 MG in NA CHLORIDE 0.9% 100 ML IVPB SCH (09:00)
[2022-11-18] MEDS ORDERED: CEFTRIAXONE 1,000 MG in NA CHLORIDE 0.9% 50 ML IVPB SCH (09:00)
--- NOTE | 2022-11-18 11:09 | P.CNS ---
Date of Consult: 11/18/22 Reason for Consult: Pneumonia Chief Complaint: Pneumonia History of Present Illness: Patient is 67 years of age has been sick since last Sunday complaining of fever on and off productive cough never smoked history of congestive heart failure admitted to the hospital with bilateral pneumonia left greater than the right also hypoxemia patient has never smoked Allergies No Known Allergies Allergy (Verified 02/22/18 11:17) Home Medications: Atenolol [Tenormin] 25 mg PO BID 12/06/11 Fenofibrate Nanocrystallized [Tricor] 145 mg PO DAILY 12/06/11 Furosemide [Lasix] 80 mg PO DAILY 12/06/11 Spironolactone 50 mg PO DAILY 12/06/11 Lovastatin [Mevacor] 40 mg PO BEDTIME 06/28/13 Aspirin [Aspirin EC 81 MG] 81 mg PO DAILY 11/05/17 Codeine/APAP [Tylenol W/Codeine #3 tab] 1 tab PO BID PRN 11/18/22 Cyclobenzaprine [Flexeril*] 1 tab PO DAILY 11/18/22 Dulaglutide [Trulicity] 0.75 mg SQ SEECOM 11/18/22 Insulin Glargine,Hum.rec.anlog [Lantus] 60 unit SQ BID 11/18/22 Insulin Lispro [Humalog] 40 unit SQ TIDWM 11/18/22 Trazodone [Desyrel] 50 mg PO BEDTIME 11/18/22 - Past Medical/Surgical History Diabetic: Yes -: DM -: CHF -: Asthma -: HTN -: blindness R eye -: 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 -: 2nd toe on L foot amputated - Social History Smoking Status: Never smoker Alcohol use: No CD- Drugs: No Caffeine use: Yes Place of Residence: Home Review of Systems 10-point ROS is otherwise unremarkable General: Weakness Respiratory: Cough, Shortness of Breath Physical Examination Temp Pulse Resp BP Pulse Ox 98.9 F 68 16 122/61 90 L 11/18/22 08:00 11/18/22 08:00 11/18/22 08:00 11/18/22 08:00 11/18/22 08:00 General: Alert, In no apparent distress, Oriented x3 HEENT: Atraumatic Neck: Supple Respiratory: Crackles/rales Cardiovascular: Normal pulses (Crackles both sides left greater than right), Regular rate/rhythm, Normal S1 S2 Gastrointestinal: Normal bowel sounds, Soft and benign Musculoskeletal: No clubbing, No swelling Laboratory Data (last 24 hrs) 11/17/22 11/17/22 11/17/22 11:30 11:30 11:30 WBC 22.70 H Hgb 14.0 Hct 40.8 Plt Count 333 PT 15.5 H INR 1.41 Sodium 133 L Potassium 3.6 BUN 22 H Creatinine 1.45 H Glucose 165 H Magnesium 2.0 Total Bilirubin 1.0 AST 17 ALT 22 Alkaline Phosphatase 63 - Problems (1) Pneumonia Current Visit: Yes Status: Acute Plan: Patient is 67 years of age admitted with cough congestion slight fever patient admitted with bilateral pneumonia left greater than the right elevated white count continue with present antibiotic sputum cultures have been ordered and also also has a history of obstructive sleep apnea patient to resume his home CPAP no fever appears to be hypoxic possible discharge home on levofloxacin once she is off the oxygen Home meds need to be reconciled
--- NOTE | 2022-11-18 11:43 | P.PN ---
Subjective Date of Service: 11/18/22 Chief Complaint: Pneumonia HPI 11/17: Andrew Alexander is a 67-year-old male with past medical history congestive heart failure, diabetes mellitus, hypertension, and chronic pain, presents to the ED complaining of cough, difficulty breathing, flu like symptoms, arthralgia, low-grade fever, and dizziness. Onset of symptoms was Sunday, 5 days ago, patient reports his brought him to the ED since he was not finding relief with cold medicine. While in the ED EKG reveals regular rh ythm with heart rate of 85 but with QTc of 525 and QT of 442. CT Reveals bilateral airspace opacity in the lower lobes as well as left upper lobe suggestive of multifocal pneumonia, and nonobstructing right lower pole 5 mm calculus. White blood cells 22.7, lactic 2.3 and redraw of 2.4, BUN/creatinine 22/1.45 with GFR 53. Blood pressure initially 152/73, heart rate 83, RR 18, temp 100.3, pulse ox 96% on room air. Levaquin, Rocephin, and azithromycin were given while in the ED with 2 L of IV fluids. Patient will be admitted for multifocal pneumonia and treated with IV antibiotics. Patient does not meeet sepsis criteria. Due to prolonged QT will not be starting azithromycin 11/18: Patient awake conversing well, on 2 LNC this AM. During examination patient began a coughing episode when asked to breath deeply. Patient stated he coughs like this to bring up the phlegm. Using rocephin and Doxycycline. Cultures NGTD. Will order and incentive spirometer. Patient took his own trulicity this AM, will monitor glucose closely. Patient denies fever, chills, N/V, CP, SOB, and MCCORMACK. <Samantha Phelan - Last Filed: 11/18/22 11:54> Date of Service: 11/18/22 <Baldo Nelson - Last Filed: 11/18/22 13:54> Review of Systems General: Unremarkable Eyes: Unremarkable ENT: Unremarkable Respiratory: Cough Cardiovascular: Unremarkable Gastrointestinal: Unremarkable Genitourinary: Unremarkable Musculoskeletal: Unremarkable <Samantha Phelan - Last Filed: 11/18/22 11:54> Physical Examination - Vital Signs Temperature: 98.9 F Blood Pressure: 122/61 Pulse: 68 Respirations: 16 Pulse Ox (%): 90 - Physical Exam General: Alert, In no apparent distress, Oriented x3, Cachectic HEENT: Atraumatic, Normocephalic, PERRLA Neck: Supple, 2+ carotid pulse no bruit, JVD not distended Respiratory: Crackles/rales Cardiovascular: No edema, Normal pulses, Regular rate/rhythm, Normal S1 S2 Capillary refill: <2 Seconds Gastrointestinal: Normal bowel sounds, Soft and benign, Distended (obese) Musculoskeletal: No clubbing, No swelling, No contractures Integumentary: No rashes, No breakdown Neurological: Normal speech, Normal strength at 5/5 x4 extr, Normal tone - Studies Laboratory Data (last 24 hrs) 11/17/22 11/17/22 11/17/22 11:30 11:30 11:30 WBC 22.70 H Hgb 14.0 Hct 40.8 Plt Count 333 PT 15.5 H INR 1.41 Sodium 133 L Potassium 3.6 BUN 22 H Creatinine 1.45 H Glucose 165 H Magnesium 2.0 Total Bilirubin 1.0 AST 17 ALT 22 Alkaline Phosphatase 63 Microbiology Data (last 24 hrs): 11/17/22 11:47 Nasopharnyx Influenza Type A Antigen Screen - Final 11/17/22 11:47 Nasopharnyx Influenza Type B Antigen Screen - Final <Samantha Phelan - Last Filed: 11/18/22 11:54> - Studies Microbiology Data (last 24 hrs): 11/17/22 11:47 Nasopharnyx Influenza Type A Antigen Screen - Final 11/17/22 11:47 Nasopharnyx Influenza Type B Antigen Screen - Final <Baldo Nelson - Last Filed: 11/18/22 13:54> Assessment And Plan - Plan Assessment and Plan Acute hypoxic respiratory distress 2/2 Multifocal pneumonia leukocytosis -WBC 19, lactic 1.2 -doxycyclin and ceftriaxone -WBC in AM labs -Patient does not meet sepsis criteria, not starting azithromycin -Incentive spirometry Diabetes mellitus type 2 -accucheck and SSI -hypoglycemia protocol -bedside glucose this AM 125, no SSI needed -Patient took his own trulicity today H/o hypertension -hold antihypertensives until appropriate -BP 123/57 h/o HLD -continue home medications Chronic pain to bilateral knees and back -restart home medications DVT ppx: heparin full code LOS > 2 days Discharge Plan: Home Plan to discharge in: Greater than 2 days Time Spent Managing PTS Care (In Minutes): 35 <Samantha Phelan - Last Filed: 11/18/22 11:54> Physician Review: Patient Assessed, Agree with Above Assessment and Plan <Baldo Nelson - Last Filed: 11/18/22 13:54>
[2022-11-18] MEDS: ACETAMINOPHEN 500 MG TAB PO PRN ×2 (12:27→20:27)
[2022-11-18] MEDS: atenoloL 50 MG TAB PO SCH (17:13)
[2022-11-18] MEDS: INSULIN GLARGINE 100 UNIT/ML SQ SCH (20:26)
[2022-11-18] MEDS: TRAZODONE 50 MG TABLET PO PRN (20:27)
[2022-11-18] MEDS ORDERED: HOME MED 1 EA UNK (Atenolol [Tenormin] 100 MG Tablet) PO SCH (21:00)
[2022-11-19] MEDS: HEPARIN 5000 UNIT/ML 1 ML VIAL SQ SCH ×3 (00:35→17:11)
[2022-11-19 04:27] LABS: Absolute Lymphocytes (CBC) 2.5 K/uL (0.7-4.9); Hematocrit 34.7 % (39.6-49.0); Lymphocytes % 17.9 % (15.3-44.8); MCV 84.3 fL (80-100); Platelets 285 thou/uL (152-406); RBC Red Blood Cell Count 4.12 M/uL (4.33-5.43)
[2022-11-19 04:45] LABS: Magnesium 2.1 mg/dL (1.6-2.4); Potassium 3.9 mEq/L (3.5-5.1)
[2022-11-19] MEDS: atenoloL 50 MG TAB PO SCH (06:44)
[2022-11-19] MEDS: INSULIN -REGULAR HUMAN 50 UNIT/0.5 ML ML SQ SCH ×4 (07:30→21:00)
[2022-11-19] MEDS ORDERED: HOME MED 1 EA UNK (Spironolactone [Spironolactone] 50 MG Tablet) PO SCH (09:00)
[2022-11-19] MEDS ORDERED: HOME MED 1 EA UNK (Furosemide [Lasix] 80 MG Tablet) PO SCH (09:00)
[2022-11-19] MEDS: FUROSEMIDE 40 MG TABLET PO SCH (09:00)
[2022-11-19] MEDS ORDERED: POTASSIUM CL SA 10 MEQ TAB PO ONE (09:00)
[2022-11-19] MEDS ORDERED: SPIRONOLACTONE 25 MG TABLET PO SCH (09:00)
[2022-11-19] MEDS: DOXYCYCLINE 100 MG in NA CHLORIDE 0.9% 100 ML IVPB SCH ×2 (09:16→21:10)
[2022-11-19] MEDS: CEFTRIAXONE 1,000 MG in NA CHLORIDE 0.9% 50 ML IVPB SCH (09:17)
[2022-11-19] MEDS: INSULIN GLARGINE 100 UNIT/ML SQ SCH ×2 (09:32→21:10)
--- NOTE | 2022-11-19 10:16 | P.PN ---
Subjective Date of Service: 11/19/22 Chief Complaint: Pneumonia Subjective: Improving (Patient is improving doing well shortness of breath has improved) Review of Systems General: Weakness Respiratory: Shortness of Breath Physical Examination - Vital Signs Temperature: 98.2 F Blood Pressure: 117/53 Pulse: 66 Respirations: 16 Pulse Ox (%): 90 - Physical Exam General: Alert, In no apparent distress, Oriented x3 Respiratory: Clear to auscultation bilaterally, Diminished Cardiovascular: No edema, Regular rate/rhythm Assessment And Plan - Current Problems (Diagnosis) (1) Pneumonia Current Visit: Yes Status: Acute Plan: Patient is 67 years of age admitted with bilateral pneumonia is improving oxygenation satisfactory on room air White count has declined significantly to 14.2 cultures are all negative hemodynamically stable stable for discharge on levofloxacin 750 for 7 days to follow-up with me he also has obstructive sleep apnea and needs to have his CPAP evaluated Qualifiers: Pneumonia type: due to unspecified organism Laterality: bilateral Physician Review: Patient Assessed, Agree with Above Assessment and Plan
--- NOTE | 2022-11-19 10:37 | P.PN ---
Subjective Date of Service: 11/19/22 Chief Complaint: Pneumonia HPI 11/17: Andrew Alexander is a 67-year-old male with past medical history congestive heart failure, diabetes mellitus, hypertension, and chronic pain, presents to the ED complaining of cough, difficulty breathing, flu like symptoms, arthralgia, low-grade fever, and dizziness. Onset of symptoms was Sunday, 5 days ago, patient reports his brought him to the ED since he was not finding relief with cold medicine. While in the ED EKG reveals regular rh ythm with heart rate of 85 but with QTc of 525 and QT of 442. CT Reveals bilateral airspace opacity in the lower lobes as well as left upper lobe suggestive of multifocal pneumonia, and nonobstructing right lower pole 5 mm calculus. White blood cells 22.7, lactic 2.3 and redraw of 2.4, BUN/creatinine 22/1.45 with GFR 53. Blood pressure initially 152/73, heart rate 83, RR 18, temp 100.3, pulse ox 96% on room air. Levaquin, Rocephin, and azithromycin were given while in the ED with 2 L of IV fluids. Patient will be admitted for multifocal pneumonia and treated with IV antibiotics. Patient does not meeet sepsis criteria. Due to prolonged QT will not be starting azithromycin 11/18: Patient awake conversing well, on 2 LNC this AM. During examination patient began a coughing episode when asked to breath deeply. Patient stated he coughs like this to bring up the phlegm. Using rocephin and Doxycycline. Cultures NGTD. Will order and incentive spirometer. Patient took his own trulicity this AM, will monitor glucose closely. Patient denies fever, chills, N/V, CP, SOB, and MCCORMACK. 11/19: Andrew continues to cough up sputum but feels better overall, deep breathes causing him to cough during examination, on RA, with a hypotensive episode this morning asymptomatic, will adjust medications before discharge. Dr. Funk recommended levofloxacin and follow up at discharge. Andrew denies fever/chills, CP, SOB, MCCORMACK, abdominal pain, and lightheadedness. <Samantha Phelan - Last Filed: 11/19/22 10:51> Date of Service: 11/19/22 <Baldo Nelson - Last Filed: 11/19/22 18:24> Review of Systems 10-point ROS is otherwise unremarkable <Samantha Phelan - Last Filed: 11/19/22 10:51> Physical Examination - Vital Signs Temperature: 98.2 F Blood Pressure: 117/53 Pulse: 66 Respirations: 16 Pulse Ox (%): 90 <Samantha Phelan - Last Filed: 11/19/22 10:51> Assessment And Plan - Plan - Physical Exam General: Alert, In no apparent distress, Oriented x3, Cachectic HEENT: Atraumatic, Normocephalic, PERRLA Neck: Supple, 2+ carotid pulse no bruit, JVD not distended Respiratory: Crackles/rales Cardiovascular: No edema, Normal pulses, Regular rate/rhythm, Normal S1 S2 Capillary refill: <2 Seconds Gastrointestinal: Normal bowel sounds, Soft and benign, Distended (obese) Musculoskeletal: No clubbing, No swelling, No contractures Integumentary: No rashes, No breakdown Neurological: Normal speech, Normal strength at 5/5 x4 extr, Normal tone Assessment and Plan Acute hypoxic respiratory distress 2/2 Multifocal pneumonia leukocytosis -WBC 14, lactic 1.2 -doxycyclin and ceftriaxone -Blood culture negative, sputum culture sensitivity pending -Patient does not meet sepsis criteria, not starting azithromycin -Incentive spirometry Diabetes mellitus type 2 -accucheck and SSI -seemglee -hypoglycemia protocol -bedside glucose this AM 195 -Patient took his own trulicity (11/18) H/o hypertension -restarted atenolol (11/18) -BP 123/57 h/o CHF -lasix and spiralactone restarted -hold the aldactone for now d/t hypotensive h/o HLD -continue home medications Chronic pain to bilateral knees and back -restart home medications DVT ppx: heparin full code likely discharge 11/20, continue monitor BP today Physician Review: Patient Assessed, Agree with Above Assessment and Plan <Samantha Phelan - Last Filed: 11/19/22 10:51> Physician Review: Patient Assessed, Agree with Above Assessment and Plan Physician Review Additional Text: He was seen on rounds this morning. He had an asymptomatic episode of hypotension in the 90s/50s. Suspect this is medication induced from the furosemide and spironolactone. We will hold these medications for now. From a pneumonia standpoint, he seems to be improving. Encouraged incentive spirometry. Anticipate discharge tomorrow on levofloxacin if blood pressures remain adequate. Baldo Nelson MD <Baldo Nelson - Last Filed: 11/19/22 18:24>
[2022-11-19] MEDS: ACETAMINOPHEN 500 MG TAB PO PRN ×2 (13:10→21:11)
--- NOTE | 2022-11-19 14:50 | EKG ---
Test Date: 2022-11-17 Test Time: 11:33:44 Railroad Maintenance Clerk: TERELL MEASUREMENT RESULTS: Intervals: Rate: 85 NV: 144 QRSD: 100 QT: 442 QTc: 525 [place]: P: 38 NV: 144 QRS: 69 T: 44 INTERPRETIVE STATEMENTS: Normal sinus rhythm Low voltage QRS Prolonged QT Abnormal ECG Compared to ECG 12/05/2011 15:18:06 Prolonged QT interval now present Electronically Signed On 11-19-22 14:44:46 CDT by Nasir Wing
[2022-11-19 20:34] VITALS: O2SAT 92
[2022-11-19] MEDS: TRAZODONE 50 MG TABLET PO PRN (21:10)
[2022-11-20] MEDS: HEPARIN 5000 UNIT/ML 1 ML VIAL SQ SCH ×2 (01:03→08:41)
[2022-11-20 03:09] LABS: Absolute Lymphocytes (CBC) 3.6 K/uL (0.7-4.9); Hematocrit 33.9 % (39.6-49.0); Lymphocytes % 26.2 % (15.3-44.8); MCV 83.8 fL (80-100); MPV 8.2 fL (7.6-11.3); Platelets 310 thou/uL (152-406); RBC Red Blood Cell Count 4.05 M/uL (4.33-5.43)
[2022-11-20 03:33] LABS: Magnesium 1.8 mg/dL (1.6-2.4); Phosphorus 4.2 mg/dL (2.5-4.9); Potassium 4.1 mEq/L (3.5-5.1)
[2022-11-20] MEDS ORDERED: atenoloL 25 MG TAB PO SCH (06:00)
[2022-11-20] MEDS ORDERED: MAGNESIUM SULFATE 1 gm IVPB 1 GM/100 ML BAG IV ONE (06:00)
[2022-11-20] MEDS: INSULIN -REGULAR HUMAN 50 UNIT/0.5 ML ML SQ SCH ×3 (07:30→16:10)
[2022-11-20] MEDS: INSULIN GLARGINE 100 UNIT/ML SQ SCH (08:40)
[2022-11-20] MEDS: FUROSEMIDE 40 MG TABLET PO SCH (08:41)
[2022-11-20] MEDS: CEFTRIAXONE 1,000 MG in NA CHLORIDE 0.9% 50 ML IVPB SCH (08:42)
[2022-11-20] MEDS: DOXYCYCLINE 100 MG in NA CHLORIDE 0.9% 100 ML IVPB SCH (08:43)
--- NOTE | 2022-11-20 14:48 | P.DS ---
Admission Date: 11/17/22 Discharge Date: 11/20/22 Disposition: ROUTINE DISCHARGE Reason for Admission: Pneumonia Brief History of Present Illness: Andrew Alexander is a 67-year-old male with past medical history congestive heart failure, diabetes mellitus, hypertension, and chronic pain, presents to the ED complaining of cough, difficulty breathing, flu like symptoms, arthralgia, low- grade fever, and dizziness. Onset of symptoms was Sunday, 5 days ago, patient reports his brought him to the ED since he was not finding relief with cold medicine. While in the ED EKG reveals regular rhythm with heart rate of 85 but with QTc of 525 and QT of 442. CT Reveals bilateral airspace opacity in the lower lobes as well as left upper lobe suggestive of multifocal pneumonia, and nonobstructing right lower pole 5 mm calculus. White blood cells 22.7, lactic 2.3 and redraw of 2.4, BUN/creatinine 22/1.45 with GFR 53. Blood pressure initially 152/73, heart rate 83, RR 18, temp 100.3, pulse ox 96% on room air. Levaquin, Rocephin, and azithromycin were given while in the ED with 2 L of IV fluids. Hospital Course: Andrew Alexander is a pleasant 67 with a past medical history significant for congestive heart failure, diabetes mellitus, hypertension, chronic pain who was admitted to the [facility] on 11/17/2022 for acute hypoxic respiratory distress secondary to multifocal pneumonia. During this admission Dr. Baca, account manager sales representative, was consulted and agreed with IV antibiotic therapy to treat this pneumonia episode. Management continued for congestive heart failure, diabetes mellitus, hypertension, chronic pain. On 11/20/2022, Mr. Alexander was seen on morning rounds and deemed medically stable for discharge. Andrew Alexander was discharged with instructions to schedule follow- up appointments with Dr melo and PCP. Andrew was provided prescriptions for levofloxacin and furosemide. The patient and family members were given the opportunity to ask questions and reported no further questions. Furthermore, all questions were answered to the best of my ability. A copy of this discharge summary will be sent to the above providers to facilitate continuity of care. Today, I personally spent 55 minutes with Mr. Alexander, of which greater than 50% of the time was spent in patient education, counseling, and coordination of care as described above. Physical Exam General: Alert, In no apparent distress, Oriented x3, Cachectic HEENT: Atraumatic, Normocephalic, PERRLA Neck: Supple, 2+ carotid pulse no bruit, JVD not distended Respiratory: Crackles/rales Cardiovascular: No edema, Normal pulses, Regular rate/rhythm, Normal S1 S2 Capillary refill: <2 Seconds Gastrointestinal: Normal bowel sounds, Soft and benign, Distended (obese) Musculoskeletal: No clubbing, No swelling, No contractures Integumentary: No rashes, No breakdown Neurological: Normal speech, Normal strength at 5/5 x4 extr, Normal tone Vital Signs/Physical Exam: Temp Pulse Resp BP Pulse Ox 97.7 F 68 18 118/59 L 94 11/20/22 12:00 11/20/22 14:40 11/20/22 12:00 11/20/22 14:40 11/20/22 12:00 Laboratory Data at Discharge: WBC 13.70 thou/uL (4.3-10.9) H 11/20/22 01:50 Hgb 11.4 g/dL (13.6-17.9) L 11/20/22 01:50 Hct 33.9 % (39.6-49.0) L 11/20/22 01:50 Plt Count 310 thou/uL (152-406) 11/20/22 01:50 PT 15.5 SECONDS (9.5-12.5) H 11/17/22 11:30 INR 1.41 11/17/22 11:30 Sodium 138 mEq/L (136-145) 11/20/22 01:50 Potassium 4.1 mEq/L (3.5-5.1) 11/20/22 01:50 BUN 18 mg/dL (7-18) 11/20/22 01:50 Creatinine 1.04 mg/dL (0.70-1.30) 11/20/22 01:50 Glucose 102 mg/dL (74-106) 11/20/22 01:50 Phosphorus 4.2 mg/dL (2.5-4.9) 11/20/22 01:50 Magnesium 1.8 mg/dL (1.6-2.4) 11/20/22 01:50 Total Bilirubin 1.0 mg/dL (0.2-1.0) 11/17/22 11:30 AST 17 U/L (15-37) 11/17/22 11:30 ALT 22 U/L (16-61) 11/17/22 11:30 Alkaline Phosphatase 63 U/L (45-117) 11/17/22 11:30 Home Medications: Fenofibrate Nanocrystallized [Tricor] 145 mg PO DAILY 12/06/11 Lovastatin [Mevacor] 40 mg PO BEDTIME 06/28/13 Aspirin [Aspirin EC 81 MG] 81 mg PO DAILY 11/05/17 Codeine/APAP [Tylenol #3*] 1 tab PO BID PRN 11/18/22 Cyclobenzaprine [Flexeril*] 1 tab PO DAILY 11/18/22 Dulaglutide [Trulicity] 0.75 mg SQ SEECOM 11/18/22 Insulin Lispro [Humalog] 40 unit SQ TIDWM 11/18/22 Trazodone [Desyrel*] 50 mg PO BEDTIME 11/18/22 Atenolol [Tenormin] 25 mg PO BID 11/20/22 Furosemide [Lasix] 20 mg PO DAILY #5 11/20/22 Trazodone [Desyrel*] 100 mg PO BEDTIME PRN PRN 11/20/22 levoFLOXacin [Levaquin*] 750 mg PO DAILY #7 tab 11/20/22 New Medications: Furosemide [Lasix] 20 mg PO DAILY #5 levoFLOXacin [Levaquin*] 750 mg PO DAILY #7 tab Physician Discharge Instructions: Follow up with Dr Melo in one week prescribed Levoflozxacin for seven days, please complete all medications Continue with medication management for diabetes mellitus continue with atenolol home dose starting tomorrow morning (11/21), monitor blood pressure three times a day Lasix 20 mg daily for 5 days then see Lorie Ambriz No restriction for ambulation Diabetic diet and monitor blood glucose at home with every meal Use incentive spirometer three times a day for improved lung expansion and continued phlegm movement Return to the ED if symptoms return Followup: Alexia Bell DO [Primary Care Provider] - Time spent managing pt's care (in minutes): 50
--- NOTE | 2022-11-20 16:52 | EKG ---
Test Date: 2022-11-18 Test Time: 12:11:19 Psychiatric Therapist: LUKAS MEASUREMENT RESULTS: Intervals: Rate: 75 [place]: 154 QRSD: 104 QT: 418 QTc: 466 [place]: P: 64 [place]: 154 QRS: 63 T: 33 INTERPRETIVE STATEMENTS: Normal sinus rhythm Normal ECG Compared to ECG 11/17/2022 11:33:44 Prolonged QT interval no longer present Electronically Signed On 11-20-22 16:49:00 CDT by Nasir Wing
--- NOTE | 2022-11-20 16:52 | EKG ---
Test Date: 2022-11-18 Test Time: 12:18:59 Packaging Inspector: LUKAS MEASUREMENT RESULTS: Intervals: Rate: 72 [place]: 150 QRSD: 102 QT: 420 QTc: 459 [place]: P: 71 [place]: 150 QRS: 61 T: 50 INTERPRETIVE STATEMENTS: Normal sinus rhythm Normal ECG Compared to ECG 11/18/2022 12:11:19 No significant changes Electronically Signed On 11-20-22 16:48:59 CDT by Nasir Wing
[2022-11-20 18:27] VITALS: BP 114/70; TEMP 98.1
== END 2022-11-20 18:30 | disposition home or self-care (01) | DRG 871 ==
LOC: ER 11:15 → ERHOLD 18:23 → 2ND 19:51
PROVIDERS: ADMIT Internal Medicine; ATTEND Hospitalist
DX: A41.9 Sepsis, unspecified organism (principal); J18.9 Pneumonia, unspecified organism; J96.01 Acute respiratory failure with hypoxia; N17.9 Acute kidney failure, unspecified; Z68.42 Body mass index [BMI] 45.0-49.9, adult; R64 Cachexia; R65.20 Severe sepsis without septic shock; E66.9 Obesity, unspecified; E78.5 Hyperlipidemia, unspecified; I10 Essential (primary) hypertension; E11.9 Type 2 diabetes mellitus without complications; G89.29 Other chronic pain; M54.9 Dorsalgia, unspecified; M25.562 Pain in left knee; M25.561 Pain in right knee; Z89.421 Acquired absence of other right toe(s); H54.61 Unqualified visual loss, right eye, normal vision left eye; Z79.4 Long term (current) use of insulin; Z88.2 Allergy status to sulfonamides; Z79.82 Long term (current) use of aspirin; Z79.899 Other long term (current) drug therapy; Z89.422 Acquired absence of other left toe(s); Z20.822 Contact with and (suspected) exposure to COVID-19
CPT/HCPCS: 36415; 71045; 71250; 74176; 80048; 80076; 82947; 83605; 83735; 83880; 84100; 84484; 85025; 85610; 87040; 87070; 87205; 87635; 87804; 93005; 94010; 96365; 96366; 96372; 96375; 99285; J0696; J1644; J1650; J1815; J3475; J7030

== ENCOUNTER 2024-11-05 05:27 | Emergency (ER) | payer OTHER ==
[2024-11-05] MEDS ORDERED: IBUPROFEN 400 MG TAB ONE (06:16)
[2024-11-05] MEDS ORDERED: CYCLOBENZAPRINE 10 MG TAB ONE (06:16)
[2024-11-05 06:32] LABS: Absolute Lymphocytes (CBC) 2.2 K/uL (0.7-4.9); Hematocrit 45.6 % (39.6-49.0); Hemoglobin 15.0 g/dL (13.6-17.9); MCH 28.4 pg (27.0-35.0); MCHC 32.9 g/dL (32.0-36.0); MCV 86.1 fL (80-100); MPV 8.2 fL (7.6-11.3); Nucleated RBC Absolute Count 0.0 (0-0); Nucleated Red Blood Cells % 0.3 % (0-0); RBC Red Blood Cell Count 5.30 M/uL (4.33-5.43); White Blood Count 7.40 thou/uL (4.3-10.9)
[2024-11-05 07:02] LABS: ALT/SGPT 19.0 U/L (16-61); AST/SGOT 12.0 U/L (15-37); Albumin 3.2 g/dL (3.4-5.0); Albumin/Globulin Ratio 1.0 (1.1-1.8); Alkaline Phosphatase 69.0 U/L (45-117); Anion Gap 9.7 mEq/L (5.0-15.0); BUN Blood Urea Nitrogen 20.0 mg/dL (7-18); Globulin 3.2 g/dL (2.3-3.5); Glucose Level 70.0 mg/dL (74-106); Potassium 3.7 mEq/L (3.5-5.1)
--- NOTE | 2024-11-05 08:02 | ER ---
Nurse's Notes [facility] Name: Andrew Alexander Age: 69 yrs Sex: Male : 1955 Arrival Date: 11/05/2024 Time: 05:27 Bed 4 Private MD: Diagnosis: Left lower extremity muscle cramps Presentation: 11/05 05:51 Chief complaint: Patient states: left calf pain that started 199 hurts worse vc1 when walking or flexing foot. Coronavirus screen: Client denies travel out of the [place] in the last 14 days. At this time, the client does not indicate any symptoms associated with coronavirus-19. Ebola Screen: Patient negative for fever greater than or equal to 101.5 degrees Fahrenheit, and additional compatible Ebola Virus Disease symptoms Patient denies exposure to infectious person. Patient denies travel to an Ebola-affected area in the 21 days before illness onset. No symptoms or risks identified at this time. Initial Sepsis Screen: Does the patient meet any 2 criteria? No. Patient's initial sepsis screen is negative. Does the patient have a suspected source of infection? No. Patient's initial sepsis screen is negative. Risk Assessment: Do you want to hurt yourself or someone else? Patient reports no desire to harm self or others. Onset of symptoms was November 03, 2024 at 02:00. 05:51 Method Of Arrival: Ambulatory vc1 05:51 Acuity: LYNDSAY 3 vc1 Triage Assessment: 05:57 General: Appears in no apparent distress. uncomfortable, obese, Behavior is calm, vc1 cooperative, appropriate for age. Pain: Complains of pain in left calf Pain does not radiate. Pain currently is 5 out of 10 on a pain scale. Quality of pain is described as crampy, Aggravated by increased activity, repositioning, weight bearing. EENT: No deficits noted. No signs and/or symptoms were reported regarding the EENT system. Neuro: Level of Consciousness is awake, alert, obeys commands, Oriented to person, place, time, situation, Appropriate for age. Cardiovascular: Heart tones S1 S2 present Capillary refill < 3 seconds Patient's skin is warm and dry. Respiratory: Airway is patent Respiratory effort is even, unlabored, Respiratory pattern is regular, symmetrical, Breath sounds are clear bilaterally. GI: No deficits noted. No signs and/or symptoms were reported involving the gastrointestinal system. : No deficits noted. No signs and/or symptoms were reported regarding the genitourinary system. Derm: Skin is intact, is healthy with good turgor, Skin is dry, Skin is normal, Skin temperature is warm. Musculoskeletal: Circulation, motion, and sensation intact. Range of motion: intact in all extremities, Reports pain in left calf. Historical: - Allergies: 05:56 Sulfa (Sulfonamide Antibiotics); vc1 - PMHx: 05:56 Congestive heart failure; diabetes mellitus; Hypertensive disorder; Leaky valve; vc1 - PSHx: 05:56 None; vc1 - Immunization history:: Client reports receiving the 2nd dose of the Covid vaccine. - Infectious Disease History:: Denies. - Social history:: Smoking status: Patient denies any tobacco usage or history of. - Family history:: not pertinent. Screenin:57 [facility] ED Fall Risk Assessment (Adult) History of falling in the last 3 months, vc1 including since admission No falls in past 3 months (0 pts) Confusion or Disorientation No (0 pts) Intoxicated or Sedated No (0 pts) Impaired Gait No (0 pts) Mobility Assist Device Used No (0 pt) Altered Elimination No (0 pt) Score/Fall Risk Level 0 - 2 = Low Risk Oriented to surroundings, Maintained a safe environment, Educated pt \T\ family on fall prevention, incl call for assistance when getting out of bed, Assessed \T\ reinforced patient's understanding of fall precautions, Hourly rounding (assess needs \T\ fall precautionary measures) done. Abuse screen: Denies threats or abuse. Nutritional screening: No deficits noted. Tuberculosis screening: No symptoms or risk factors identified. Assessment: 05:59 General: Appears in no apparent distress. comfortable, Behavior is calm, cooperative. lg3 Pain: Complains of pain in left calf Aggravated by increased activity, weight bearing. Neuro: No deficits noted. [place] Agitation-Sedation Scale (RASS): 0 - Alert and Calm Level of Consciousness is awake, alert, obeys commands, Oriented to person, place, time, situation. Cardiovascular: No deficits noted. Denies chest pain, shortness of breath, Capillary refill < 3 seconds Clubbing of nail beds is absent JVD is absent Patient's skin is warm and dry. Respiratory: No deficits noted. Airway is patent Respiratory effort is even, unlabored, Respiratory pattern is regular, symmetrical. GI: No deficits noted. No signs and/or symptoms were reported involving the gastrointestinal system. : No signs and/or symptoms were reported regarding the genitourinary system. EENT: No deficits noted. No signs and/or symptoms were reported regarding the EENT system. Derm: No deficits noted. No signs and/or symptoms reported regarding the dermatologic system. Skin is intact, is healthy with good turgor, Skin is dry, Skin is normal, Skin temperature is warm. Musculoskeletal: No deficits noted. Circulation, motion, and sensation intact. Range of motion: intact in all extremities, Reports pain in left calf. 07:15 Reassessment: Patient appears in no apparent distress at this time. Patient and/or db family updated on plan of care and expected duration. Pain level reassessed. Patient is alert, oriented x 3, equal unlabored respirations, skin warm/dry/pink. 08:33 Reassessment: Patient appears in no apparent distress at this time. Patient and/or bp family updated on plan of care and expected duration. Pain level reassessed. Patient is alert, oriented x 3, equal unlabored respirations, skin warm/dry/pink. Vital Signs: 05:51 BP 127 / 66; Pulse 68; Resp 18; Temp 96.4; Pulse Ox 95% ; Weight 127.01 kg; Height 5 vc1 ft. 6 in. ; Pain 5/10; 07:00 BP 143 / 80; Pulse 60; Resp 16; Pulse Ox 95% on R/A; db 08:32 BP 133 / 83; Pulse 62; Resp 16; Pulse Ox 97% ; bp 05:51 Body Mass Index 45.19 (127.01 kg, 167.64 cm) vc1 05:51 Pain Scale: Adult vc1 Selma Coma Score: 06:10 Eye Response: spontaneous(4). Motor Response: obeys commands(6). Verbal Response: sp4 oriented(5). Total: 15. ED Course: 05:40 Patient arrived in ED. gm2 05:44 Mauricio Whitaker MD is Attending Physician. sp4 05:56 Triage completed. vc1 05:56 Arm band placed on left wrist. vc1 05:57 Patient has correct armband on for positive identification. Bed in low position. Call vc1 light in reach. Provided Education on: Plan of care. Pulse ox on. NIBP on. 05:59 Lacey Conde, RN is Primary Nurse. lg3 05:59 Door closed. Noise minimized. Warm blanket given. Pillow given. Family accompanied lg3 patient. 06:24 Initial lab(s) drawn, by me, sent to lab. Inserted saline lock: 22 gauge in right lg3 forearm, using aseptic technique. Blood collected. Flushed with 10 mL NS. 06:55 Extremity Venous Uni Ltd US In Process Unspecified. EDMS 08:33 No provider procedures requiring assistance completed. IV discontinued, intact, bp bleeding controlled, No redness/swelling at site. Pressure dressing applied. Administered Medications: 06:24 Drug: Ibuprofen PO 800 mg PO once Route: PO; lg3 08:34 Follow up: Response: No adverse reaction bp 06:25 Drug: Cyclobenzaprine PO 10 mg PO once Route: PO; lg3 08:34 Follow up: Response: No adverse reaction bp Medication: 05:57 VIS not applicable for this client. vc1 Outcome: 08:01 Discharge ordered by . akash 08:33 Discharged to home ambulatory, bp 08:33 Condition: stable 08:33 Discharge instructions given to patient, Instructed on discharge instructions, follow up and referral plans. medication usage, Demonstrated understanding of instructions, follow-up care, medications, Prescriptions given X 1, 08:34 Patient left the ED. bp Signatures: Dispatcher [employer] EDMS Juan Villalpando RN NAVARRO bp Lacey Conde RN RN lg3 Corrina Curry RN RN vc1 Elizabeth Ramirez, RN Mauricio Byrd MD MD sp4 Deann Huang 2
--- NOTE | 2024-11-05 08:02 | EDPHYS ---
Physician Documentation [facility] Name: Andrew Alexander Age: 69 yrs Sex: Male : 1955 Arrival Date: 11/05/2024 Time: 05:27 Bed 4 Private MD: ED Physician Mauricio Whitaker HPI: 11/05 05:44 This 69 yrs old Other Race Male presents to ER via Unassigned with complaints of Leg sp4 Pain. 06:09 Patient presents with moderate and acute left lower extremity pain described as crampy sp4 pain. 06:10 Pain started 2 days ago. sp4 Historical: - Allergies: 05:56 Sulfa (Sulfonamide Antibiotics); vc1 - PMHx: 05:56 Congestive heart failure; diabetes mellitus; Hypertensive disorder; Leaky valve; vc1 - PSHx: 05:56 None; vc1 - Immunization history:: Client reports receiving the 2nd dose of the Covid vaccine. - Infectious Disease History:: Denies. - Social history:: Smoking status: Patient denies any tobacco usage or history of. - Family history:: not pertinent. ROS: 06:10 Constitutional: Negative for fever, chills, and weight loss, positive for left lower sp4 extremity pain and cramps 06:10 All other systems are negative, Exam: 06:10 Constitutional: This is a well developed, well nourished patient who is awake, alert, sp4 and in no acute distress. Head/Face: Normocephalic, atraumatic. Eyes: Pupils equal round and reactive to light, extra-ocular motions intact. Lids and lashes normal. Conjunctiva and sclera are not injected. Cornea within normal limits. Periorbital areas with no swelling, redness, or edema. ENT: Nares patent. No nasal discharge, no septal abnormalities noted. Tympanic membranes are normal and external auditory canals are clear. Oropharynx with no redness, swelling, or masses, exudates, or evidence of obstruction, uvula midline. Mucous membranes moist. Neck: Trachea midline, no thyromegaly or masses palpated, and no cervical lymphadenopathy. Supple, full range of motion without nuchal rigidity, or vertebral point tenderness. Chest/axilla: Normal chest wall appearance and motion. Nontender with no deformity. No lesions are appreciated. Cardiovascular: Regular rate and rhythm with a normal S1 and S2. No gallops, murmurs, or rubs. No pulse deficits. Respiratory: Lungs have equal breath sounds bilaterally, clear to auscultation and percussion. No rales, rhonchi or wheezes noted. No increased work of breathing, no retractions or nasal flaring. Abdomen/GI: Soft, with normal bowel sounds. No distension or tympany. No guarding or rebound. No evidence of tenderness throughout. Back: No spinal tenderness. No costovertebral tenderness. Skin: Warm, dry with normal turgor. Normal color with no rashes, no lesions, and no evidence of cellulitis. MS/ Extremity: Pulses equal, no cyanosis. Neurovascular intact. Full, normal range of motion. Neuro: Awake and alert, GCS 15, oriented to person, place, time, and situation. Cranial nerves II-XII grossly intact. Motor strength 5/5 in all extremities. Sensory grossly intact. Psych: Awake, alert, with orientation to person, place and time. Behavior, mood, and affect are within normal limits Vital Signs: 05:51 BP 127 / 66; Pulse 68; Resp 18; Temp 96.4; Pulse Ox 95% ; Weight 127.01 kg; Height 5 vc1 ft. 6 in. ; Pain 5/10; 07:00 BP 143 / 80; Pulse 60; Resp 16; Pulse Ox 95% on R/A; db 08:32 BP 133 / 83; Pulse 62; Resp 16; Pulse Ox 97% ; bp 05:51 Body Mass Index 45.19 (127.01 kg, 167.64 cm) vc1 05:51 Pain Scale: Adult vc1 Jeffy Coma Score: 06:10 Eye Response: spontaneous(4). Motor Response: obeys commands(6). Verbal Response: sp4 oriented(5). Total: 15. MDM: 06:07 Medical Screening Exam initiated sp4 06:11 Differential diagnosis: contusion, abrasion, tendonitis, Left lower extremity DVT. Data sp4 reviewed: vital signs, nurses notes, radiologic studies, ultrasound. 11/05 06:08 Order name: CBC with Diff; Complete Time: 07:21 sp4 11/05 06:08 Order name: CMP; Complete Time: 07:21 sp4 11/05 06:09 Order name: Extremity Venous Uni Ltd US; Complete Time: 21:59 sp4 11/05 06:08 Order name: IV Saline Lock; Complete Time: 06:25 sp4 11/05 06:08 Order name: Labs collected and sent; Complete Time: 06:25 sp4 Administered Medications: 06:24 Drug: Ibuprofen PO 800 mg PO once Route: PO; lg3 08:34 Follow up: Response: No adverse reaction bp 06:25 Drug: Cyclobenzaprine PO 10 mg PO once Route: PO; lg3 08:34 Follow up: Response: No adverse reaction bp Disposition: 07:56 Chart complete. sp4 Disposition Summary: 11/05/24 08:01 Discharge Ordered Notes: Location: Home sp4 Problem: new sp4 Symptoms: have improved sp4 Condition: Stable sp4 Diagnosis - Left lower extremity muscle cramps sp4 Followup: sp4 - With: Private Physician - When: 7 - 10 days - Reason: Recheck today's complaints Discharge Instructions: - Discharge Summary Sheet sp4 - Muscle Cramps and Spasms, [id number] sp4 Forms: - Patient Portal Instructions sp4 Prescriptions: - Cyclobenzaprine 10 mg Oral Tablet - take 1 tablet ORAL route every 8 hours As needed; 30 tablet; Refills: 0, sp4 Product Selection Permitted Signatures: Dispatcher [employer] Lacey Beal RN RN lg3 Corrina Curry RN RN vc1 Mauricio Whitaker MD MD sp4 Juan Villalpando RN bp
--- NOTE | 2024-11-05 08:02 | RAD REPORT ---
EXAMINATION: US LEFT LOWER EXTREMITY VENOUS DOPPLER CLINICAL INDICATION: Left leg left leg pain TECHNIQUE: Complete bilateral duplex sonography of the LEFT lower extremity veins was performed. The examination included compression for vein patency, color Doppler imaging and flow augmentation in response to distal compression of the distal external iliac, common femoral, femoral, popliteal, tibi al, and great and small saphenous veins. COMPARISON: No prior exam. FINDINGS: Duplex sonography testing of the veins of the LEFT lower extremity was performed. Color flow imaging shows all veins to be compressible with [id number] color filling, although one of the venous catheter tributaries could not be well evaluated for compressibility given depth and small size. Puls atile and phasic flow is present within all lower extremity deep and superficial veins examined. IMPRESSION: No definite evidence of deep venous thrombosis.
[2024-11-05 09:08] VITALS: TEMP 96.4
[2024-11-05 09:10] VITALS: BP 133/83; O2SAT 97
== END 2024-11-05 08:34 | disposition home or self-care (01) ==
LOC: ER 05:27
DX: R25.2 Cramp and spasm (principal)
CPT/HCPCS: 36415; 80053; 85025; 93971; 99284